=== PATIENT | female | born 1950 | race Caucasian/White ===

== ENCOUNTER → 2016-08-14 | Outpatient (CLI) | payer BC ==
--- NOTE | 2016-08-14 11:11 | REPMRS ---
Patient History The patient states she had a clinical breast exam in 07/2016. Patient is postmenopausal, has history of melanoma skin cancer at age 52, and has history of endometrial cancer at age 51. Family history of prostate cancer in father at age 50 or over. Benign excisional biopsy of the right breast, 2002. Digital Woman Screen Mammo: August 14, 2016 - Exam #: [id number] Bilateral CC and MLO view(s) were taken. Technologist: Evelina Mcelroy, Technologist Prior study comparison: August 15, 2015, digital woman screen mammo performed at [facility] [employer] [facility] [facility]. August 11, 2014, digital woman screen mammo performed at [facility] [employer] [facility]. August 05, 2013, digital woman screen mammo performed at [facility] [employer] [facility] [facility]. FINDINGS: There are scattered fibroglandular densities. There is a moderate amount of residual fibroglandular tissue which is fairly symmetric. There is no interval development of dominant mass, architectural distortion, or clustered microcalcification typical of malignancy. There has been no change in the appearance of the mammogram from the prior studies. ASSESSMENT: BI-RADS/ACR category 1 mammogram. Negative. Recommendation Routine screening mammogram of both breasts in 1 year (for women over age 40). This mammogram was interpreted with the aid of an FDA-approved computer-aided dectection system. Electronically Signed By: Fabian Braden MD 08/14/16 1111
== END ==
LOC: M WHC 09:29
PROVIDERS: ATTEND Nurse Practitioner Women's Health
DX: Z12.31 Encounter for screening mammogram for malignant neoplasm of breast (principal); Z78.0 Asymptomatic menopausal state; Z80.42 Family history of malignant neoplasm of prostate; Z85.820 Personal history of malignant melanoma of skin; Z85.44 Personal history of malignant neoplasm of other female genital organs

== ENCOUNTER → 2017-05-07 | Outpatient (REF) | payer OTHER ==
[2017-05-07 12:16] LABS: ALBUMIN 3.7 GM/DL (3.2-5.2); ALBUMIN/GLOBULIN RATIO 1.23 (1.00-1.93); ALKALINE PHOSPHATASE 72 U/L (45-117); ALT/SGPT 18 U/L (12-78); ANION GAP 7 MEQ/L (8-16); AST/SGOT 18 U/L (7-37); BILIRUBIN,TOTAL 0.8 MG/DL (0.2-1.0); BLOOD UREA NITROGEN 18 MG/DL (7-18); CALCIUM LEVEL 9.1 MG/DL (8.8-10.2); CARBON DIOXIDE LEVEL 29 MEQ/L (21-32); CHLORIDE LEVEL 106 MEQ/L (98-107); CHOLESTEROL LEVEL 271 MG/DL (<200); CHOLESTEROL RISK RATIO 2.945 (<5); CREATININE FOR GFR 0.85 MG/DL (0.55-1.30); FREE T4 0.77 NG/DL (0.76-1.46); GLOMERULAR FILTRATION RATE > 60.0 (>45); GLUCOSE, FASTING 88 MG/DL (70-100); HDL CHOLESTEROL 92 MG/DL (>40); LDL CHOLESTEROL 161.8 MG/DL (<100); NON-HDL-C 179 MG/DL; SODIUM LEVEL 142 MEQ/L (136-145); TOTAL PROTEIN 6.7 GM/DL (6.4-8.2); TRIGLYCERIDES LEVEL 86 MG/DL (<150)
[2017-05-07 12:56] LABS: TOTAL 25(OH) VITAMIN D 31.3 NG/ML (30.0-100.0)
== END ==
LOC: M LABDRAW1 11:25
DX: E78.00 Pure hypercholesterolemia, unspecified (principal); E55.9 Vitamin D deficiency, unspecified
CPT/HCPCS: 84443

== ENCOUNTER → 2017-06-11 | Outpatient (REF) | payer OTHER ==
[2017-06-11 12:58] LABS: FREE T4 0.85 NG/DL (0.76-1.46)
== END ==
LOC: M LABDRAW1 11:47
DX: R94.6 Abnormal results of thyroid function studies (principal)

== ENCOUNTER → 2017-08-13 | Outpatient (REF) | payer MEDICARE, OTHER ==
[2017-08-13 13:37] LABS: FREE T4 1.03 NG/DL (0.76-1.46)
[2017-08-14 08:31] LABS: THYROID PEROXIDASE ANTIBODY 38.7 U/ML (<60.0)
== END ==
LOC: M LABDRAW1 10:29
DX: E03.9 Hypothyroidism, unspecified (principal)
CPT/HCPCS: 84443

== ENCOUNTER → 2017-08-15 | Outpatient (CLI) | payer MEDICARE | LOC: M WHC 09:40 | DX: Z12.31 Encounter for screening mammogram for malignant neoplasm of breast (principal); Z78.0 Asymptomatic menopausal state; Z85.42 Personal history of malignant neoplasm of other parts of uterus; Z92.89 Personal history of other medical treatment; Z08 Encounter for follow-up examination after completed treatment for malignant neoplasm | CPT/HCPCS: 77067; G0123 ==

== ENCOUNTER → 2017-08-15 | Outpatient (REF) | payer MEDICARE | LOC: M SFHCWAGY 09:55 | DX: Z08 Encounter for follow-up examination after completed treatment for malignant neoplasm (principal) ==

== ENCOUNTER → 2018-02-11 | Outpatient (REF) | payer MEDICARE ==
[2018-02-11 12:31] LABS: ANION GAP 5 MEQ/L (8-16); BLOOD UREA NITROGEN 19 MG/DL (7-18); CALCIUM LEVEL 9.2 MG/DL (8.8-10.2); CARBON DIOXIDE LEVEL 26 MEQ/L (21-32); CHLORIDE LEVEL 108 MEQ/L (98-107); CREATININE FOR GFR 0.94 MG/DL (0.55-1.30); FREE T4 1.12 NG/DL (0.76-1.46); GLOMERULAR FILTRATION RATE > 60.0 (>45); GLUCOSE, FASTING 95 MG/DL (70-100); POTASSIUM SERUM 4.3 MEQ/L (3.5-5.1); SODIUM LEVEL 139 MEQ/L (136-145)
== END ==
LOC: M LABDRAW1 11:43
DX: E03.9 Hypothyroidism, unspecified (principal); I10 Essential (primary) hypertension
CPT/HCPCS: 84443

== ENCOUNTER → 2018-05-23 | Outpatient (REF) | payer MEDICARE ==
[2018-05-23 13:05] LABS: BASO # 0.1 10^3/uL (0.0-0.2); BASO % 0.8 % (0.0-1.0); EOS % 0.3 % (0.0-3.0); HEMOGLOBIN 14.2 g/dl (12.0-15.5); LYMPH # 1.3 10^3/uL (1.5-4.5); LYMPH % 19.4 % (24.0-44.0); MEAN CORPUSCULAR HEMOGLOBIN 31.2 pg (27.0-33.0); MEAN CORPUSCULAR HGB CONC 33.8 g/dl (32.0-36.5); MEAN CORPUSCULAR VOLUME 92.3 fl (80.0-96.0); MONO # 0.5 10^3/uL (0.0-0.8); MONO % 6.8 % (0.0-5.0); NEUTROPHILS # 4.8 10^3/uL (1.8-7.7); NEUTROPHILS % 72.5 % (36.0-66.0); PLATELET COUNT, AUTOMATED 257 10^3/uL (150-450); RED BLOOD COUNT 4.55 10^6/uL (4.00-5.40); WHITE BLOOD COUNT 6.6 10^3/uL (4.0-10.0)
[2018-05-23 13:45] LABS: ALT/SGPT 20 U/L (12-78); BILIRUBIN,TOTAL 1.1 MG/DL (0.2-1.0); BLOOD UREA NITROGEN 14 MG/DL (7-18); CALCIUM LEVEL 9.1 MG/DL (8.8-10.2); CARBON DIOXIDE LEVEL 25 MEQ/L (21-32); CHLORIDE LEVEL 109 MEQ/L (98-107); CHOLESTEROL LEVEL 193 MG/DL (<200); CHOLESTEROL RISK RATIO 3.216 (<5); CREATININE FOR GFR 0.86 MG/DL (0.55-1.30); GLOMERULAR FILTRATION RATE > 60.0 (>45); GLUCOSE, FASTING 88 MG/DL (70-100); HDL CHOLESTEROL 60 MG/DL (>40); LDL CHOLESTEROL 118 MG/DL (<100); MAGNESIUM LEVEL 2.2 MG/DL (1.8-2.4); NON-HDL-C 133 MG/DL; POTASSIUM SERUM 4.8 MEQ/L (3.5-5.1); SODIUM LEVEL 141 MEQ/L (136-145); TOTAL PROTEIN 6.8 GM/DL (6.4-8.2); TRIGLYCERIDES LEVEL 76 MG/DL (<150); TROPONIN I < 0.02 NG/ML (< 0.10)
== END ==
LOC: M LABDRAW1 11:29
PROVIDERS: ATTEND Physician Assistant
DX: R55 Syncope and collapse (principal)

== ENCOUNTER → 2018-08-20 | Outpatient (REF) | payer MEDICARE | LOC: M SFHCWAGY 13:19 | PROVIDERS: ATTEND Nurse Practitioner Women's Health | DX: Z12.4 Encounter for screening for malignant neoplasm of cervix (principal); R87.615 Unsatisfactory cytologic smear of cervix ==

== ENCOUNTER → 2018-08-20 | Outpatient (CLI) | payer MEDICARE ==
--- NOTE | 2018-08-20 11:52 | REPMRS ---
Patient History The patient states she had a clinical breast exam in 07/2018. Family history of prostate cancer at age 50 or over in father. Benign excisional biopsy of the right breast, 2002. 3D TOMOSYNTHESIS WAS PERFORMED. Digital Woman Screen Mammo: August 20, 2018 - Exam #: [id number] Bilateral CC and MLO view(s) were taken. Technologist: Yael Gamino, Technologist Prior study comparison: August 15, 2017, digital woman screen mammo performed at [facility]. August 14, 2016, digital woman screen mammo performed at [facility]. FINDINGS: The breast tissue is heterogeneously dense. This may lower the sensitivity of mammography. There has been no change in the appearance of the mammogram from the prior studies. There is a moderate amount of residual fibroglandular tissue which is fairly symmetric. There is no interval development of dominant mass, areas of architectural distortion, or clustered microcalcification typical of malignancy. Assessment: BI-RADS/ACR category 1 mammogram. Negative Mammogram. Recommendation Routine screening mammogram in 1 year (for women over age 40). This mammogram was interpreted with the aid of an FDA-approved computer-aided dectection system. Electronically Signed By: Naveen Broussard MD 08/20/18 [id number]
== END ==
LOC: M WHC 09:49
PROVIDERS: ATTEND Family Medicine
DX: Z01.419 Encounter for gynecological examination (general) (routine) without abnormal findings (principal); Z12.31 Encounter for screening mammogram for malignant neoplasm of breast; Z86.018 Personal history of other benign neoplasm
CPT/HCPCS: 77063; 77067; G0101; G0123

== ENCOUNTER → 2018-08-21 | Outpatient (REF) | payer MEDICARE ==
[2018-08-21 13:24] LABS: BASO % 0.4 % (0.0-1.0); EOS # 0.1 10^3/uL (0.0-0.50); EOS % 0.7 % (0.0-3.0); HEMATOCRIT 44.4 % (36.0-47.0); HEMOGLOBIN 14.8 g/dl (12.0-15.5); LYMPH # 1.2 10^3/uL (1.5-4.5); LYMPH % 16.6 % (24.0-44.0); MEAN CORPUSCULAR HEMOGLOBIN 30.9 pg (27.0-33.0); MEAN CORPUSCULAR HGB CONC 33.3 g/dl (32.0-36.5); MEAN CORPUSCULAR VOLUME 92.7 fl (80.0-96.0); MONO # 0.5 10^3/uL (0.0-0.8); MONO % 6.3 % (0.0-5.0); NEUTROPHILS # 5.4 10^3/uL (1.8-7.7); NEUTROPHILS % 75.7 % (36.0-66.0); PLATELET COUNT, AUTOMATED 276 10^3/uL (150-450); RED BLOOD COUNT 4.79 10^6/uL (4.00-5.40); WHITE BLOOD COUNT 7.1 10^3/uL (4.0-10.0)
[2018-08-21 14:05] LABS: FREE T4 1.11 NG/DL (0.76-1.46); THYROID STIMULATING HORMONE 1.86 uIU/ML (0.358-3.740)
== END ==
LOC: M LABDRAW1 10:04
PROVIDERS: ATTEND Physician Assistant
DX: E03.9 Hypothyroidism, unspecified (principal)

== ENCOUNTER → 2019-06-04 | Outpatient (REF) | payer MEDICARE ==
[2019-06-04 10:03] LABS: BASO % 0.5 % (0.0-1.0); EOS # 0.1 10^3/uL (0.0-0.5); EOS % 1.4 % (0.0-3.0); HEMATOCRIT 40.3 % (36.0-47.0); HEMOGLOBIN 13.3 g/dl (12.0-15.5); LYMPH # 1.3 10^3/uL (1.5-5.0); LYMPH % 22.1 % (24.0-44.0); MEAN CORPUSCULAR HEMOGLOBIN 31.1 pg (27.0-33.0); MEAN CORPUSCULAR VOLUME 94.4 fl (80.0-96.0); MONO # 0.3 10^3/uL (0.0-0.8); MONO % 5.9 % (0.0-5.0); NEUTROPHILS # 4.1 10^3/uL (1.5-8.5); NEUTROPHILS % 69.9 % (36.0-66.0); PLATELET COUNT, AUTOMATED 227 10^3/uL (150-450); RED BLOOD COUNT 4.27 10^6/uL (4.00-5.40); WHITE BLOOD COUNT 5.8 10^3/uL (4.0-10.0)
[2019-06-04 10:31] LABS: ALBUMIN 3.6 GM/DL (3.2-5.2); ALT/SGPT 19 U/L (12-78); BLOOD UREA NITROGEN 16 MG/DL (7-18); CALCIUM LEVEL 8.9 MG/DL (8.8-10.2); CARBON DIOXIDE LEVEL 28 MEQ/L (21-32); CHLORIDE LEVEL 109 MEQ/L (98-107); CHOLESTEROL LEVEL 189 MG/DL (<200); CREATININE FOR GFR 0.82 MG/DL (0.55-1.30); FREE T4 1.09 NG/DL (0.76-1.46); GLOMERULAR FILTRATION RATE > 60.0 (>45); GLUCOSE, FASTING 104 MG/DL (70-100); HDL CHOLESTEROL 70 MG/DL (>40); LDL CHOLESTEROL 105 MG/DL (<100); NON-HDL-C 119 MG/DL; POTASSIUM SERUM 4.1 MEQ/L (3.5-5.1); SODIUM LEVEL 142 MEQ/L (136-145); TOTAL PROTEIN 6.3 GM/DL (6.4-8.2); TRIGLYCERIDES LEVEL 70 MG/DL (<150)
== END ==
LOC: M LABDRAW1 08:36
PROVIDERS: ATTEND Family Medicine
DX: I10 Essential (primary) hypertension (principal); E03.9 Hypothyroidism, unspecified; E78.00 Pure hypercholesterolemia, unspecified

== ENCOUNTER → 2019-08-24 | Outpatient (CLI) | payer MEDICARE ==
--- NOTE | 2019-08-24 14:13 | REP ---
BILATERAL MAMMOGRAM WITH 3D TOMOSYNTHESIS: Bilateral mammogram performed in the MLO and CC projections with 3D tomosynthesis. COMPARISON: 08/20/2018 as well as other prior exams. There is no family history of breast cancer. Tyrer-Cuzick lifetime risk of breast cancer is 4.4%. Volpara breast density is B. There is mild scattered fibroglandular tissue which is unchanged. There may be increasing tiny calcifications in the upper inner right breast. Otherwise, there are coarse benign type calcifications seen bilaterally. IMPRESSION: BIRADS 0: BI-RADS/ACR category 0 mammogram, Incomplete: Need additional imaging evaluation and/or prior mammograms for comparison. ACR 0 incomplete. Possible increasing tiny calcifications upper inner right breast. Recommend magnifications views to further evaluate. This mammogram was interpreted with the aid of an FDA-approved computer-aided detection system. A. Negative x-ray reports should not delay biopsy if a dominant or clinically suspicious mass is present. B. Four to eight percent of cancers are not identified by x-ray. C. Adenosis and dense breasts may obscure an underlying neoplasm. The patient states she/he had a clinical breast exam in February 2019. The patient letter being requested is M0
== END ==
LOC: M WHC 09:57
PROVIDERS: ATTEND Nurse Practitioner Women's Health
DX: Z12.31 Encounter for screening mammogram for malignant neoplasm of breast (principal)

== ENCOUNTER → 2019-08-28 | Outpatient (CLI) | payer MEDICARE ==
--- NOTE | 2019-08-28 16:02 | REP ---
DIAGNOSTIC MAMMOGRAM, RIGHT BREAST: Magnification views of the right breast are performed. There are two clusters of suspicious microcalcifications identified in the right breast. A more anterior cluster is seen in the 12 to 1-o'clock region of the right breast. Another is seen more posteromedially in the mid third of the right breast. Recommend stereotactic biopsy. IMPRESSION: BIRADS 4: BI-RADS/ACR category 4 mammogram. Suspicious Abnormality - biopsy should be considered. Two clusters of pleomorphic microcalcifications identified in the right breast, one anteriorly between 12 and 1-o'clock position and the other more posteromedially in the mid third of the right breast. Recommend stereotactic biopsy of both clusters of microcalcifications. ACR 4 suspicious.
== END ==
LOC: M WHC 12:50
PROVIDERS: ATTEND Nurse Practitioner Family
DX: R92.2 Inconclusive mammogram (principal)

== ENCOUNTER → 2019-09-16 | Outpatient (CLI) | payer MEDICARE ==
[2019-09-16 15:01] VITALS: BP 140/70
--- NOTE | 2019-09-17 00:48 | REP ---
ULTRASOUND LEFT BREAST: Ultrasound left breast requested by Dr. Lema of the 11-12 o'clock region. There is an oval calcification at that location, which appears to represent an area of calcified fat necrosis on the mammogram of 08/24/2019. The calcification measures 6 x 5 x 3 mm. No other cystic or solid nodule is seen. IMPRESSION: ACR 2, benign. Benign oval calcification 11 o'clock left breast. No other cystic or solid nodule seen in the left breast at 11-12 o'clock.
--- NOTE | 2019-09-17 16:22 | REP ---
SPECIMEN RADIOGRAPHY RIGHT BREAST: Four views. HISTORY: Right breast calcifications. Comparison mammography August 28, 2019. FINDINGS: Specimen radiography demonstrates microcalcifications from the target groupings in four of the removed specimens. IMPRESSION: Specimen radiography demonstrates microcalcifications.
--- NOTE | 2019-09-17 16:22 | REP ---
POSTBIOPSY MAMMOGRAM RIGHT BREAST: Postbiopsy mammogram of the right breast performed following stereotactic biopsy of two separate clusters of microcalcifications. A biopsy clip is see at 12 -o'clock position at the site of the previously identified cluster of microcalcifications, which are no longer visualized. A second biopsy clip is seen in the inner right breast at the site of a cluster of microcalcifications. Many of these calcifications which are no longer visualized. Clip placement appears appropriate.
--- NOTE | 2019-09-18 11:03 | REP ---
STEREOTACTIC GUIDANCE FOR RIGHT BREAST BIOPSY: Two clusters of microcalcifications. Stereotactic guidance was provided for Dr. Lema who performed stereotactic-guided biopsy of two clusters of microcalcifications, one located at about 12-o'clock position right breast and the other at about 3-o'clock position. The 12-o'clock position anterior cluster is biopsied first. The cluster is seen in the biopsy window. The second cluster is then targeted in the medial aspect of the right breast. The cluster is seen in the biopsy window. Biopsy clip is seen at the each site following the biopsies.
--- NOTE | 2019-09-24 16:24 | ROOPDOC ---
[facility] Report Of Operation Report of Operation DATE OF PROCEDURE: 09/16/19 PREPROCEDURE DIAGNOSES: 2 clusters of suspicious right breast calcifications POSTPROCEDURE DIAGNOSES: 2 clusters of suspicious right breast calcifications PROCEDURE: stereotactic biopsy of 2 clusters of suspicious right breast calcifications ( 2 sites) SURGEON: Gus Rojas CLIENT SERVICES ASSOCIATE: ANESTHESIA: local ESTIMATED BLOOD LOSS: Approximately 5 mL. COMPLICATIONS: none REMARKS: calcs seen in both specimens, clips seen in expected locations in the right breast DESCRIPTION OF PROCEDURE: Lidocaine 1% LOT [id number] Expiration 09/14 Sodium Bicarbonate 8.4% LOT [id number] Expiration 09/12 CENTRAL BX: Hydromark clip LOT [id number] Expiration 01/12 REF T1 titanium shaped 1 (closed Spring) Bx device: Stereotactic Mammotome Revolve Dual Vacuum- assisted Biopsy System 10 G LOT [id number] Expiration 05/2022 REF [id number] MEDIAL BX Hydromark clip LOT [id number] Expiration 06/12 REF T1 titanium shaped 1 (closed Spring) Bx device: Stereotactic Mammotome Revolve Dual Vacuum- assisted Biopsy System 10 G LOT [id number] Expiration 05/2022 REF [id number] Informed consent was obtained in the preop area. The most common risk and possible complications including bleeding, hematoma, bruising, infection, injury to surrounding structures were explained to the patient and she expressed understanding. Patient was taken to the procedure room and placed prone on the [facility] Prone Breast Biopsy table with the right breast hanging through the table aperture. Right breast was placed into Cranio-Caudal compression and Brick Siding Applicator saw images were taken. Centrally located suspicious cluster of calcifications was identified on the saw images and target was set. CC approach from the top was chosen for this procedure. At this time, since we were able to confirm visibility of the suspicious calcifications and patient tolerated prone positioning allowing to proceed with the biopsy, appropriate time out was done stating patients name, date of , and the procedure to be performed. The right breast in CC compression was prepped in the usual fashion. Plain Lidocaine 1% and 8.4% sodium bicarbonate 10:1 mix was used to anesthetize the skin, the biopsy site and tissues along the anticipated biopsy tract. Small skin incision was made with blade number 11. Mammotome 10 G stereotactic breast biopsy device was inserted through the incision and advanced to the previously set coordinates marking the target lesion. Pre-fire imaging was taken to assure appropriate positioning. At this time, Mammotome 10 G breast biopsy device was fired and vacuum assisted biopsies were collected. The biopsy samples were investigated with Faxitron Imaging system and calcifications were observed. Biopsy samples were then placed in the formaldehyde, marked with patients name and right central breast biopsy site, and sent to pathology for evaluation. Hydromark clip was placed into the Mammotome biopsy device channel and deployed. Post-deployment imaging was done to assure appropriate clip deployment. Clip was noted in the right medial biopsy site. At this point, paddle CC compression of the right breast was released and repositioned to target the medical cluster of calcifications. Another Brick Siding Applicator saw images were taken. Medially located suspicious cluster of calcifications was identified on the saw images and target was set. CC approach from the top was chosen for this procedure. The right breast in CC compression was re-prepped in the usual fashion. Plain Lidocaine 1% and 8.4% sodium bicarbonate 10:1 mix was used to anesthetize the skin, the biopsy site and tissues along the anticipated biopsy tract. Small skin incision was made with blade number 11. Mammotome 10 G stereotactic breast biopsy device was inserted through the incision and advanced to the previously set coordinates marking the target lesion. Pre-fire imaging was taken to assure appropriate positioning. At this time, Mammotome 10 G breast biopsy device was fired and vacuum assisted biopsies were collected. The biopsy samples were investigated with Faxitron Imaging system and calcifications were observed. Biopsy samples were then placed in the formaldehyde, marked with patients name and right medial breast biopsy site, and sent to pathology for evaluation. Hydromark clip was placed into the Mammotome biopsy device channel and deployed. Post-deployment imaging was done to assure appropriate clip deployment. Clip was noted in the right medial biopsy site. At this point, paddle CC compression of the right breast was released and manual pressure was held to decrease harmonic effect and to assure hemostasis. No bleeding was noted upon removal of the pressure. Patient was slowly repositioned and placed into sitting position, and then assisted off the table. Post-biopsy mammogram of the right breast was obtained and showed two clips in expected position. Postprocedural dressing was placed. Patient tolerated procedure well and was taken to the recovery unit in stable condition. Discharge instructions were discussed with the patient and she expressed understanding. GUS ROJAS DO Sep 24, 2019 16:23
== END ==
LOC: M WHCPRO 10:49
PROVIDERS: ATTEND Surgery
DX: R92.1 Mammographic calcification found on diagnostic imaging of breast (principal); N60.19 Diffuse cystic mastopathy of unspecified breast

== ENCOUNTER → 2019-09-30 | Outpatient (REF) | payer MEDICARE | LOC: M SFHCWAGY 15:22 | PROVIDERS: ATTEND Surgery | DX: L53.9 Erythematous condition, unspecified (principal) ==

== ENCOUNTER → 2019-10-02 | Outpatient (CLI) | payer MEDICARE ==
[2019-10-02 15:51] LABS: FREE T4 1.11 NG/DL (0.76-1.46); THYROID STIMULATING HORMONE 3.04 uIU/ML (0.358-3.740)
== END ==
LOC: M PLALAB 14:16
PROVIDERS: ATTEND Family Medicine
DX: E03.9 Hypothyroidism, unspecified (principal)

== ENCOUNTER → 2019-12-28 | Outpatient (CLI) | payer MEDICARE ==
[2019-12-28 14:26] LABS: FREE T4 1.05 NG/DL (0.76-1.46); THYROID STIMULATING HORMONE 1.9 uIU/ML (0.358-3.740)
== END ==
LOC: M PLALAB 10:14
PROVIDERS: ATTEND Family Medicine
DX: E03.9 Hypothyroidism, unspecified (principal)

== ENCOUNTER → 2020-02-02 | Outpatient (REF) | payer MEDICARE | LOC: M SFHCWAGY 12:55 | PROVIDERS: ATTEND Nurse Practitioner Women's Health | DX: Z12.4 Encounter for screening for malignant neoplasm of cervix (principal); Z85.41 Personal history of malignant neoplasm of cervix uteri; Z98.890 Other specified postprocedural states; N95.2 Postmenopausal atrophic vaginitis | CPT/HCPCS: G0101; G0123 ==

== ENCOUNTER → 2020-02-24 | Outpatient (CLI) | payer MEDICARE ==
[2020-02-24 13:28] LABS: BASO % 0.6 % (0.0-1.0); EOS # 0.1 10^3/uL (0.0-0.5); EOS % 1.3 % (0.0-3.0); HEMATOCRIT 41.2 % (36.0-47.0); HEMOGLOBIN 13.1 g/dl (12.0-15.5); LYMPH # 1.2 10^3/uL (1.5-5.0); LYMPH % 18.2 % (24.0-44.0); MEAN CORPUSCULAR HEMOGLOBIN 31.2 pg (27.0-33.0); MEAN CORPUSCULAR HGB CONC 31.8 g/dl (32.0-36.5); MEAN CORPUSCULAR VOLUME 98.1 fl (80.0-96.0); MONO # 0.5 10^3/uL (0.0-0.8); MONO % 8.1 % (0.0-5.0); NEUTROPHILS # 4.8 10^3/uL (1.5-8.5); NEUTROPHILS % 71.7 % (36.0-66.0); PLATELET COUNT, AUTOMATED 274 10^3/uL (150-450); WHITE BLOOD COUNT 6.7 10^3/uL (4.0-10.0)
[2020-02-24 13:59] LABS: C REACTIVE PROTEIN QUANTITATIV < 0.30 MG/DL (0.00-0.30); FREE T4 1.11 NG/DL (0.76-1.46)
[2020-02-24 14:03] LABS: ERYTHROCYTE SEDIMENTATION RATE 9 mm/hr (0-30)
[2020-02-25 16:12] LABS: Lyme Disease IgG/IgM Antibodie <0.91 ISR (0.00-0.90); Lyme Disease IgM Ab Quantitati <0.80 index (0.00-0.79)
== END ==
LOC: M PLALAB 09:40
PROVIDERS: ATTEND Family Medicine
DX: E03.9 Hypothyroidism, unspecified (principal); M25.562 Pain in left knee

== ENCOUNTER → 2020-03-14 | Outpatient (CLI) | payer MEDICARE ==
--- NOTE | 2020-03-14 09:45 | REP ---
INDICATION: R92.1 RIGHT BREAST CALC/6 MO F/U. COMPARISON: 08/24/2019, 09/16/2019, as well as other prior exams. TECHNIQUE: MLO and CC views right breast performed with tomosynthesis. FINDINGS: Mild scattered fibroglandular tissue is unchanged. 2 biopsy clips are noted status post negative stereotactic biopsies 09/16/2019. No new clusters of suspicious microcalcifications are seen. Scattered benign calcifications are present. There is no new mass or architectural distortion. Volpara breast density B Tyrer-Cuzick lifetime risk of breast cancer 4.2%. IMPRESSION: BIRADS/ACR 2 benign. No new mass or suspicious clusters of microcalcifications, status post negative stereotactic biopsies 09/16/2019. This mammogram was interpreted with the aid of an FDA-approved computer-aided detection system. The patient letter being requested is M 1. RECOMMENDATION: Repeat screening mammography recommended August 2020. <Electronically signed by Naveen Broussard > 03/14/20 0915
== END ==
LOC: M WHC 08:49
PROVIDERS: ATTEND Surgery
DX: R92.1 Mammographic calcification found on diagnostic imaging of breast (principal)
CPT/HCPCS: 77065; G0279

== ENCOUNTER → 2020-06-13 | Outpatient (CLI) | payer MEDICARE ==
[2020-06-13 12:02] LABS: BASO % 0.8 % (0.0-1.0); EOS # 0.1 10^3/uL (0.0-0.5); EOS % 1.5 % (0.0-3.0); HEMATOCRIT 41.5 % (36.0-47.0); HEMOGLOBIN 13.6 g/dl (12.0-15.5); LYMPH # 1.3 10^3/uL (1.5-5.0); MEAN CORPUSCULAR HEMOGLOBIN 30.8 pg (27.0-33.0); MEAN CORPUSCULAR HGB CONC 32.8 g/dl (32.0-36.5); MEAN CORPUSCULAR VOLUME 94.1 fl (80.0-96.0); MONO # 0.5 10^3/uL (0.0-0.8); MONO % 8.6 % (2.0-8.0); NEUTROPHILS # 3.4 10^3/uL (1.5-8.5); NEUTROPHILS % 65.1 % (36.0-66.0); PLATELET COUNT, AUTOMATED 296 10^3/uL (150-450); RED BLOOD COUNT 4.41 10^6/uL (4.00-5.40); WHITE BLOOD COUNT 5.3 10^3/uL (4.0-10.0)
[2020-06-13 13:28] LABS: ALBUMIN 3.5 GM/DL (3.2-5.2); ALT/SGPT 21 U/L (12-78); BILIRUBIN,TOTAL 0.9 MG/DL (0.2-1.0); BLOOD UREA NITROGEN 14 MG/DL (7-18); CALCIUM LEVEL 9.2 MG/DL (8.8-10.2); CARBON DIOXIDE LEVEL 26 MEQ/L (21-32); CHLORIDE LEVEL 108 MEQ/L (98-107); CHOLESTEROL LEVEL 201 MG/DL (<200); CREATININE FOR GFR 0.91 MG/DL (0.55-1.30); FREE T4 1.24 NG/DL (0.76-1.46); GLOMERULAR FILTRATION RATE > 60.0 (>45); GLUCOSE, FASTING 89 MG/DL (70-100); HDL CHOLESTEROL 50 MG/DL (>40); LDL CHOLESTEROL 135 MG/DL (<100); NON-HDL-C 151 MG/DL; POTASSIUM SERUM 4.2 MEQ/L (3.5-5.1); SODIUM LEVEL 140 MEQ/L (136-145); TOTAL 25(OH) VITAMIN D 34.4 NG/ML (30.0-100.0); TOTAL PROTEIN 6.3 GM/DL (6.4-8.2); TRIGLYCERIDES LEVEL 80 MG/DL (<150)
[2020-06-14 21:07] LABS: ANA (HEP2) Negative (.); Lyme Disease IgG/IgM Antibodie <0.91 ISR (0.00-0.90); Lyme Disease IgM Ab Quantitati <0.80 index (0.00-0.79)
== END ==
LOC: M PLALAB 08:18
PROVIDERS: ATTEND Family Medicine
DX: Z00.00 Encounter for general adult medical examination without abnormal findings (principal); E78.00 Pure hypercholesterolemia, unspecified; I10 Essential (primary) hypertension; E55.9 Vitamin D deficiency, unspecified; R53.83 Other fatigue; Z79.899 Other long term (current) drug therapy

== ENCOUNTER → 2020-09-09 | Outpatient (CLI) | payer MEDICARE ==
--- NOTE | 2020-09-09 11:17 | REPMRS ---
Patient History The patient states she had a clinical breast exam in August 2020. Family history of prostate cancer at age 50 or over in father. Benign stereotatic loc for ea lesion. of the right breast, September 16, 2019. Benign radio exam breast specimen. of the right breast, September 16, 2019. Benign excisional biopsy of the right breast, 2002. Pfizer vaccine 04/24/20 left arm. 05/15/20 right arm. 21 lb intentional weight loss. Patient states no breast complaints today. Patient has signed MRS History Sheet. Digital Woman Screen Mammo: September 09, 2020 - Exam #: [id number] Bilateral CC and MLO view(s) were taken. Technologist: RT Huber Prior study comparison: March 14, 2020, right breast diagnostic unilateral mammo performed at [facility]. August 28, 2019, bilateral diagnostic unilateral mammo performed at [facility]. FINDINGS: There are scattered fibroglandular densities. Screening. Digital screening (2D) mammography was performed bilaterally in the CC and MLO projections. Additionally, breast tomosynthesis (3D mammography) was performed bilaterally in the CC and MLO projections. Todays exam was compared to the prior exam/exams. By history, the patient has no complaints of a palpable breast abnormality or other significant breast complaints. The breasts are unchanged in size and shape. There are no robin-soft tissue densities or spiculated masses. There is no internal architectural distortion.Once again, stable benign appearing calcifications are seen. There are no suspicious robin-calcific clusters. Skin thickening or nipple retraction is not present. IMPRESSION: BI-RADS Category 2- Benign Findings. There is no evidence of malignant alteration of the breasts. Followup examination recommended in one year. The Volpara volumetric breast density category is B, there are scattered areas of fibroglandular densities. This mammogram was read with the assistance of [employer],an FDA approved computer aided detection system for mammography. The lifetime Tyrer-Cuzick score is 4.2 % Negative x-ray reports should not delay surgical consultation if a dominant or clinically suspicious mass is present. Not all breast cancers can be identified by mammography. Therefore, we recommend that you continue to perform regular breast self-examination and physical examination and then promptly contact your physician of any concerns or changes. Adenosis and dense breasts may obscure an underlying neoplasm. Assessment: BI-RADS/ACR category 2 mammogram. Benign Findings. Recommendation Routine screening mammogram of both breasts in 1 year. Electronically Signed By: Iker Méndez DO 09/09/20 1116
== END ==
LOC: M WHC 09:56
PROVIDERS: ATTEND Surgery
DX: Z12.31 Encounter for screening mammogram for malignant neoplasm of breast (principal)

== ENCOUNTER → 2021-01-06 | Outpatient (CLI) | payer MEDICARE ==
[~2021-01-06] MED LIST: ACYC200C8 PO; CIDA500T2 PO; GNP250TA9 PO; HYDR12.55 PO; IRBE150T7 PO; LEVO50TA5 PO; VITAD400CA PO
== END ==
LOC: M LABSMTC 10:29
PROVIDERS: ATTEND Anesthesiology
DX: Z01.812 Encounter for preprocedural laboratory examination (principal); Z20.822 Contact with and (suspected) exposure to COVID-19

== ENCOUNTER 2021-01-11 08:44 | Day surgery (SDC) | payer MEDICARE ==
[~2021-01-11] VITALS: Ht 170.2 cm; Wt 98.9 kg
[~2021-01-11 08:44] MED LIST changes: +NS 1,000 ML IV ONE
--- OUTSIDE RECORDS SUMMARY | 2021-01-11 08:49 | CCD | Summary of Care ---
Author Author [facility] Organization [facility] Address Unknown Phone Unavailable Care Team Providers Care Neurology Nurse Name Role Phone Diogo-CorinHilario cooperellen FARLEY PCP Reason for Referral * External Surgery Case (Routine) Referred By Contact Referred To Contact Status Reason Specialty Diagnoses / Procedures Med Monae MD [address] [place] [id number] Email: [email or web address] Diagnoses Dupuytren's contracture of right hand P rocedures Surgery Case Request Electronically signed by Med Monae MD at Reason for Visit * Reason Comments New Patient R hand ganglion, bilat smal l finger contracture Encounter Details Care Team Description Date Type Department Med Monae MD [address] [place] [id number] Dupuytren's contracture of right hand (P rimary Dx) 11/18/2020 Office Visit [facility] , [facility] [address] [place] [phone] Allergies No Known Active Allergiesdocumented as of this encounter (statuses as of 11/18/2020) Medications End Date Status Medication Sig Dispensed Refills Start Date Active Vitamin D-3 25 MCG (1000 1 capsule 0 UT) Oral Capsule 1600 mg (CHOLECALCIFEROL) Active hydroCHLOROthiazide 25 MG 1 tablet in 0 Oral Tablet (HYDRODIURIL) the morning Active Irbesartan 150 MG Oral Take 150 mg 0 02 Tablet (AVAPRO) by mouth 1 daily Active Levothyroxine Sodium 50 1 tablet on 0 MCG Oral Tablet an empty (SYNTHROID) stomach in the morning Active Magnesium 500 MG Oral 1 tab 0 Tablet 11/18/2020 Discontinued Esomeprazole Magnesium 20 1 capsule 0 MG Oral Capsule Delayed Release (NexIUM) 11/18/2020 Discontinued (Medication Rec oncilation) Gabapentin 300 MG Oral TAKE ONE 0 02 Capsule (NEURONTIN) CAPSULE BY 0 MOUTH AT BEDTIME NEEDED 11/18/2020 Discontinued (Medication Rec oncilation) Fish Oil 1000 MG Oral 1 tab 0 Capsule 11/18/2020 Discontinued (Medication Rec oncilation) oxyCODONE-Acetaminophen 1 tablet as 0 5-325 MG Oral Tablet needed 6 (PERCOCET) 11/18/2020 Discontinued (Medication Rec oncilation) Valsartan 160 MG Oral 1 tablet 0 Tablet (DIOVAN) 11/18/2020 Discontinued (Medication Rec oncilation) Valsartan 80 MG Oral 1 tab 0 Tablet (Diovan) documented as of this encounter (statuses as of 11/18/2020) Active Problems No known active problemsdocumented as of this encounter (statuses as of 11/18/2020) Immunizations Name Administration Dates Next Due documented as of this encounter Social History Date Tobacco Use Types Packs/Day Years Used Passive Smoke Exposure - Cigarettes 0 15 Never Smoker Smokeless Tobacco: Never Used Comments Alcohol Use Standard Drinks/Week Not Currently 0 (1 standard drink = 0.6 o z pure alcohol) Sex Assigned at Date Recorded Not on file Date Recorded COVID-19 Exposure Response 11/18/2020 10:25 AM EDT In the last month, have you been in contact with No / Unsure someone who was confirmed or suspected to have Coronavirus / COVID-19? documented as of this encounter Last Filed Vital Signs Reading Time Taken Comments Vital Sign 152/93 11/18/2020 10:44 AM EDT Blood Pressure 78 11/18/2020 10:44 AM EDT Pulse - - Temperature - - Respiratory Rate - - Oxygen Saturation - - Inhaled Oxygen Concentration 90.7 kg (200 lb) 11/18/2020 10:44 AM EDT Weight 170.2 cm (5' 7") 11/18/2020 10:44 AM EDT Height 31.32 11/18/2020 10:44 AM EDT Body Mass Index documented in this encounter Progress Notes * Med Monae MD - 11/18/2020 10:[address] Hargrove: Thank you very much for asking me to see Debbie Orellana. I saw and examined the patient with my fellow, Dr. Noe Lima, and I agree with his assessment and plan. I refer to his note for a complete note. We are going to proceed with a right partial palmar and small finger digital fasciectomy to be performed under local anesthesia. Thank you once again for asking me to see this very pleasant lady. Sincerely, Med Monae * Noe Lima MD - 11/18/2020 10:30 AM EDT History 69-year-old [id number] female presents for evaluation of bilateral hand nodularity and contracture of the small finger that is been progressively worse jaki. Symptoms are worse in the right hand than the left. She notes that her p inky finger has begun to contract down on the right side. She has noticed the e grace stages of the contracture on the left but is not nearly as worse as the rig ht. She does report that the contracture in the right hand is started to impact her activities and limits the function of her hand. Exam Inspection of the right hand demonstrates evidence of Dupuytren's disease with a central cord overlying the palm of the fifth metacarpal as well as a less promi nent area over the fourth metacarpal, the nodularity extends through the volar a spect of the MCP joint and the small finger with approximately 15 degrees of fle xion contracture in the MCP and 5 degrees in the PIP joint of the small finger. There is no flexion contracture in the ring finger. The left hand demonstrates a central cord with lesser prominence over the fifth metacarpal with no evidence of contracture. A/P 69-year-old female who has bilateral Dupuytren's with right small finger contrac ture at the MCP and PIP that is bothersome to her and inhibiting her activities of daily living. We had extensive discussion about treatment options including both fasciectomy versus percutaneous needle aponeurotomy. The patient would lik e to proceed with fasciectomy on the right side. We are in agreement with this plan we will get it scheduled for her soon as possible. documented in this encounter Plan of Treatment Order Schedule Name Type Priority Associated Diag noses 1 Occurrences starting 11/18/2020 until 05/21/2021 COVID-19 PCR Microbiology Routine Dupuytren's con tracture of right hand Health Maintenance Due Date Last Done Comments Hepatitis C Screening (B. 1950 [id number]) MMR Vaccines (1 of 1 - 11/20/1951 Standard series) DTaP,Tdap,and Td Vaccines 11/20/1958 (1 - Tdap) Breast Cancer Screening 2 11/20/2001 years Colon Cancer Screening 10 11/20/2001 yrs Osteoporosis Screening 2 11/20/2016 yr Pneumococcal Vaccine: 65+ 11/20/2016 Years (1 of 1 - PPSV23) Varicella Vaccines (1 of 02/10/2019 12/16/2018 2 - 2-dose childhood series) Zoster Vaccines (2 of 2) 02/10/2019 12/16/2018 Influenza Vaccine 12/23/2020 11/23/2019, 01/14/2019, 02/17/2018, Additional history exists COVID-19 Vaccine Completed 05/15/2020, 04/24/2020 HIB Vaccines Aged Out No longer eligible based on patient's age to complete this topic Hepatitis A Vaccines Aged Out No longer eligibl e based on patient's age to complete this topic Hepatitis B Vaccines Aged Out No longer eligibl e based on patient's age to complete this topic IPV Vaccines Aged Out No longer eligible based on patient's age to complete this topic Pneumococcal Vaccine: Aged Out No longer eligib le based on patient's age to Pediatrics (0 to 5 Years) complete this topic and At-Risk Patients (6 to 64 Years) documented as of this encounter Procedures Comments Procedure Name Priority Date/Time Associated Diag nosis SURGERY CASE REQUEST Routine 11/18/2020 Dupuytren 's contracture OUTSIDE FACILITY ONLY 11:28 AM EDT of right hand documented in this encounter Results Not on filedocumented in this encounter Visit Diagnoses Diagnosis Dupuytren's contracture of right hand - Primary Contracture of palmar fascia documented in this encounter
--- OUTSIDE RECORDS SUMMARY | 2021-01-11 08:49 | CCD | Continuity of Care Document ---
Author Author Debbie ARMENDARIZ M.D. Organization Unknown Address [address] [place] [id number] Phone [phone] Care Team Providers Care Clinical Fellow Name Role Phone Shante Hargrove DO AUTM [phone] Problems Active Problems Provider Date Screening for malignant neoplasm of colon Brissa Sidhu, A.N.P. Onset: 07/29/2012 Epigastric pain Brissa Sidhu,A.N.P. Onset: 07/30/19 13 Essential hypertension Onset: 07/30/2012 Social History Type Date Description Comments Sex Unknown ETOH Use Occasionally Tobacco Use Start: Unknown End: Unknown Patient is a former smoker Allergies, Adverse Reactions, Alerts Description No Known Drug Allergies Medications Active Medications SIG Qnty Indications Ordering Provide r Date [place] [id number] Tablets as directed 1box Norman Armendariz M.D. 11/15/2020 Levothyroxine Sodium 50mcg Tablets Take One Tablet By Mouth Every Morning On Empty Stomach Unknown Irbesartan 150mg Tablets Take One Tablet By Mouth Every Day Unknown Hydrochlorothiazide 12.5mg Tablets Take One Tablet By Mouth Every Day Unknown Immunizations Description No Information Available Vital Signs Date Vital Result Comment 11/15/2020 2:14pm Height 67 inches 5'7" Weight 220.00 lb BP Systolic 130 mmHg BP Diastolic 80 mmHg Heart Rate 67 /min BMI (Body Mass Index) 34.5 kg/m2 Weight 99.792 kg Body Temperature 96.4 F 09/15/2015 10:38am Height 67 inches 5'7" Weight 180.00 lb BP Systolic 114 mmHg BP Diastolic 74 mmHg Heart Rate 64 /min BMI (Body Mass Index) 28.2 kg/m2 Weight 81.648 kg Results Description No Information Available Procedures Date Code Description Status 11/15/2020 02121 Office/Outpatient New Low MDM 30 -44 Minutes Completed Medical Devices Description No Information Available Encounters Type Date Location Provider Dx Diagnosis Office Visit 11/15/2020 1:45p Main Office Norman Armendariz M.D. Z 86.010 Personal history of colonic polyps Assessments Date Code Description Provider 11/15/2020 Z86.010 Personal history of colonic poly ps Norman Armendariz M.D. Plan of Treatment Future Appointment(s):* 01/11/2021 11:30 am - Norman Armendariz M.D. at Main Office 11/15/2020 - Norman Armendariz M.D.* Z86.010 Personal history of colonic polyps* Comments:* 69 yo wf who presents for a colonoscopy due to a h/o colonic polyps. Last scope was in 2015. No c/o abdominal pain, weight loss, change in bowel habits, or rectal bleeding. No family h/o colon cancer. No h/o chest pain, or sob. Plan:1.Schedule patient for Colonoscopy. 2. Informed consent given.3. Advised to stop asa, plavix,and anticoagulation 3 to 7 days prior to the procedures. Functional Status Description No Information Available Mental Status Description No Information Available Referrals Description No Information Available
--- OUTSIDE RECORDS SUMMARY | 2021-01-11 08:50 | CCD ---
Author Author [facility] Organization [facility] Address Unknown Phone Unavailable Care Team Providers Care Commercial Account Manager Name Role Phone Maura Armendariz MD Unavailable Unavailable Maura Armendariz MD Unavailable Unavailable Maura Armendariz MD Unavailable Unavailable Maura Armendariz MD Unavailable Unavailable Maura Armendariz MD Unavailable Unavailable Maura Armendariz MD Unavailable Unavailable Maura Armendariz MD Unavailable Unavailable Maura Armendariz MD Unavailable Unavailable Maura Armendariz MD Unavailable Unavailable Maura Armendariz MD Unavailable Unavailable Maura Armendariz MD Unavailable Unavailable Maura Armendariz MD Unavailable Unavailable Maura Armendariz MD Unavailable Unavailable Maura Armendariz MD Unavailable Unavailable Maura Armendariz MD Unavailable Unavailable Maura Armendariz MD Unavailable Unavailable Maura Armendariz MD Unavailable Unavailable Marcello, S Norman ALCALA Unavailable Unavailable Marcello, S Norman ALCALA Unavailable Unavailable Marcello, S Norman ALCALA Unavailable Unavailable Marcello, S Norman ALCALA Unavailable Unavailable Marcello, S Norman ALCALA Unavailable Unavailable Marcello, S Norman ALCALA Unavailable Unavailable Marcello, S Norman ALCALA Unavailable Unavailable Marcello, S Norman ALCALA Unavailable Unavailable Marcello, S Norman ALCALA Unavailable Unavailable Marcello, S Norman ALCALA Unavailable Unavailable Marcello, S Norman ALCALA Unavailable Unavailable Marcello, S Norman ALCALA Unavailable Unavailable Marcello, S Norman MD Unavailable Unavailable Marcello, S Norman ALCALA Unavailable Unavailable Marcello, S Norman MD Unavailable Unavailable Marcello, S Norman ALCALA Unavailable Unavailable Marcello, S Norman ACLALA Unavailable Unavailable Marcello, S Norman ALCALA Unavailable Unavailable Marcello, S Norman ALCALA Unavailable Unavailable Marcello, S Norman ALCALA Unavailable Unavailable Marcello, S Norman ALCALA Unavailable Unavailable Marcello, S Norman ALCALA Unavailable Unavailable Marcello, S Norman ALCALA Unavailable Unavailable Marcello, S Norman ALCALA Unavailable Unavailable Marcello, S Norman ALCALA Unavailable Unavailable Marcello, S Norman ALCALA Unavailable Unavailable Marcello, S Norman ALCALA Unavailable Unavailable Marcello, S Norman ALCALA Unavailable Unavailable Marcello, S Norman ALCALA Unavailable Unavailable Marcello, S Norman ALCALA Unavailable Unavailable Marcello, S Norman ALCALA Unavailable Unavailable Marcello, Maura Austin MD Unavailable Unavailable Marcello, S Norman ALCALA Unavailable Unavailable LAROCK, J SEPIDEH COLD WORKING INSPECTOR Unavailable Unavailable LAROCK, J SEPIDEH COLD WORKING INSPECTOR Unavailable Unavailable LAROCK, J SEPIDEH COLD WORKING INSPECTOR Unavailable Unavailable LAROCK, J SEPIDEH COLD WORKING INSPECTOR Unavailable Unavailable LAROCK, J SEPIDEH COLD WORKING INSPECTOR Unavailable Unavailable LAROCK, J SEPIDEH COLD WORKING INSPECTOR Unavailable Unavailable LAROCK, J SEPIDEH COLD WORKING INSPECTOR Unavailable Unavailable LAROCK, J SEPIDEH COLD WORKING INSPECTOR Unavailable Unavailable LAROCK, J SEPIDEH COLD WORKING INSPECTOR Unavailable Unavailable LAROCK, J SEPIDEH COLD WORKING INSPECTOR Unavailable Unavailable LAROCK, J SEPIDEH COLD WORKING INSPECTOR Unavailable Unavailable LAROCK, J SEPIDEH COLD WORKING INSPECTOR Unavailable Unavailable LAROCK, J SEPIDEH COLD WORKING INSPECTOR Unavailable Unavailable LAROCK, J SEPIDEH COLD WORKING INSPECTOR Unavailable Unavailable LAROCK, J SEPIDEH COLD WORKING INSPECTOR Unavailable Unavailable LAROCK, J SEPIDEH COLD WORKING INSPECTOR Unavailable Unavailable LAROCK, J SEPIDEH COLD WORKING INSPECTOR Unavailable Unavailable LAROCK, J SEPIDEH COLD WORKING INSPECTOR Unavailable Unavailable LAROCK, J SEPIDEH COLD WORKING INSPECTOR Unavailable Unavailable LAROCK, J SEPIDEH COLD WORKING INSPECTOR Unavailable Unavailable LAROCK, J SEPIDEH COLD WORKING INSPECTOR Unavailable Unavailable LAROCK, J SEPIDEH COLD WORKING INSPECTOR Unavailable Unavailable Nikki METCALF MD Unavailable Unavailable Nikki METCALF MD Unavailable Unavailable Nikki METCALF MD Unavailable Unavailable Nikki METCALF MD Unavailable Unavailable METCALF, Nikki BLANCHARD MD Unavailable Unavailable METCALF, Nikki BLANCHARD MD Unavailable Unavailable METCALF, Nikki BLANCHARD MD Unavailable Unavailable METCALF, Nikki BLANCHARD MD Unavailable Unavailable METCALF, Nikki BLANCHARD MD Unavailable Unavailable METCALF, Nikki BLANCHARD MD Unavailable Unavailable METCALF, Nikki BLANCHARD MD Unavailable Unavailable METCALF, Nikki BLANCHARD MD Unavailable Unavailable METCALF, Nikki BLANCHARD MD Unavailable Unavailable METCALF, Nikki BLANCHARD MD Unavailable Unavailable METCALF, Nikki BLANCHARD MD Unavailable Unavailable METCALF, Nikki BLANCHARD MD Unavailable Unavailable METCALF, Nikki BLANCHARD MD Unavailable Unavailable METCALF, Nikki BLANCHARD MD Unavailable Unavailable METCALF, Nikki BLANCHARD MD Unavailable Unavailable METCALF, Nikki BLANCHARD MD Unavailable Unavailable METCALF, Nikki BLANCHARD MD Unavailable Unavailable METCALF, Nikki BLANCHARD MD Unavailable Unavailable METCALF, Nikki BLANCHARD MD Unavailable Unavailable METCALF, Nikki BLANCHARD MD Unavailable Unavailable METCALF, Nikki BLANCHARD MD Unavailable Unavailable METCALF, Nikki BLANCHARD MD Unavailable Unavailable METCALF, Nikki BLANCHARD MD Unavailable Unavailable METCALF, Nikki BLANCHARD MD Unavailable Unavailable METCALF, Nikki BLANCHARD MD Unavailable Unavailable METCALF, Nikki BLANCHARD MD Unavailable Unavailable METCALF, Nikki BLANCHARD MD Unavailable Unavailable METCALF, Nikki BLANCHARD MD Unavailable Unavailable METCALF, Nikki BLANCHARD MD Unavailable Unavailable METCALF, Nikki BLANCHARD MD Unavailable Unavailable METCALF, Nikki BLANCHARD MD Unavailable Unavailable METCALF, Nikki BLANCHARD MD Unavailable Unavailable METCALF, Nikki BLANCHARD MD Unavailable Unavailable METCALF, Nikki BLANCHARD MD Unavailable Unavailable METCALF, Nikki BLANCHARD MD Unavailable Unavailable METCALF, Nikki BLANCHARD MD Unavailable Unavailable METCALF, Nikki BLANCHARD MD Unavailable Unavailable METCALF, Nikki BLANCHARD MD Unavailable Unavailable METCALF, Nikki BLANCHARD MD Unavailable Unavailable METCALF, Nikki BLANCHRAD MD Unavailable Unavailable METCALF, Nikki BLANCHARD MD Unavailable Unavailable METCALF, Nikki BLANCHARD MD Unavailable Unavailable METCALF, Nikki BLANCHARD MD Unavailable Unavailable METCALF, Nikki BLANCHARD MD Unavailable Unavailable METCALF, Nikki BLANCHARD MD Unavailable Unavailable METCALF, Nikki BLANCHARD MD Unavailable Unavailable METCALF, Nikki BLANCHARD MD Unavailable Unavailable METCALF, Nikki BLANCHARD MD Unavailable Unavailable METCALF, Nikki BLANCHARD MD Unavailable Unavailable METCALF, Nikki BLANCHARD MD Unavailable Unavailable METCALF, Nikki BLANCHARD MD Unavailable Unavailable METCALF, Nikki BLANCHARD MD Unavailable Unavailable METCALF, Nikki BLANCHARD MD Unavailable Unavailable METCALF, Nikki BLANCHARD MD Unavailable Unavailable METCALF, Nikki BLANCHARD MD Unavailable Unavailable METCALF, Nikki BLANCHARD MD Unavailable Unavailable METCALF, Nikki BLANCHARD MD Unavailable Unavailable METCALF, Nikki BLANCHARD MD Unavailable Unavailable METCALF, Nikki BLANCHARD MD Unavailable Unavailable METCALF, Nikki BLANCHARD MD Unavailable Unavailable METCALF, Nikki BLANCHARD MD Unavailable Unavailable METCALF, Nikki BLANCHARD MD Unavailable Unavailable METCALF, Nikki BLANCHARD MD Unavailable Unavailable METCALF, Nikki BLANCHARD MD Unavailable Unavailable METCALF, Nikki BLANCHARD MD Unavailable Unavailable METCALF, Nikki BLANCHARD MD Unavailable Unavailable METCALF, Nikki BLANCHARD MD Unavailable Unavailable METCALF, Nikki BLANCHARD MD Unavailable Unavailable METCALF, Nikki BLANCHARD MD Unavailable Unavailable METCALF, Nikki BLANCHARD MD Unavailable Unavailable METCALF, Nikki BLANCHARD MD Unavailable Unavailable METCALF, Nikki BLANCHARD MD Unavailable Unavailable METCALF, Nikki BLANCHARD MD Unavailable Unavailable METCALF, Nikki BLANCHARD MD Unavailable Unavailable METCALF, Nikki BLANCHARD MD Unavailable Unavailable METCALF, Nikki BLANCHARD MD Unavailable Unavailable METCALF, Nikki BLANCHARD MD Unavailable Unavailable METCALF, Nikki BLANCHARD MD Unavailable Unavailable METCALF, Nikki BLANCHARD MD Unavailable Unavailable METCALF, Nikki BLANCHARD MD Unavailable Unavailable METCALF, Nikki BLANCHARD MD Unavailable Unavailable METCALF, Nikki BLANCHARD MD Unavailable Unavailable METCALF, Nikki BLANCHARD MD Unavailable Unavailable METCALF, Nikki BLANCHARD MD Unavailable Unavailable METCALF, Nikki BLANCHARD MD Unavailable Unavailable METCALF, Nikki BLANCHARD MD Unavailable Unavailable METCALF, Nikki BLANCHARD MD Unavailable Unavailable METCALF, Nikki BLANCHARD MD Unavailable Unavailable METCALF, Nikki BLANCHARD MD Unavailable Unavailable METCALF, Nikki BLANCHARD MD Unavailable Unavailable METCALF, Nikki BLANCHARD MD Unavailable Unavailable METCALF, Nikki BLANCHARD MD Unavailable Unavailable METCALF, Nikki BLANCHARD MD Unavailable Unavailable METCALF, Nikki BLANCHARD MD Unavailable Unavailable METCALF, Nikki BLANCHARD MD Unavailable Unavailable METCALF, Nikki BLANCHARD MD Unavailable Unavailable METCALF, Nikki BLANCHARD MD Unavailable Unavailable METCALF, Nikki BLANCHARD MD Unavailable Unavailable METCALF, Nikki BLANCHARD MD Unavailable Unavailable METCALF, Nikki BLANCHARD MD Unavailable Unavailable METCALF, Nikki BLANCHARD MD Unavailable Unavailable METCALF, Nikki BLANCHARD MD Unavailable Unavailable METCALF, Nikki BLANCHARD MD Unavailable Unavailable METCALF, Nikki BLANCHARD MD Unavailable Unavailable METCALF, Nikki BLANCHARD MD Unavailable Unavailable METCALF, Nikki BLANCHARD MD Unavailable Unavailable METCALF, Nikki BLANCHARD MD Unavailable Unavailable METCALF, Nikki BLANCHARD MD Unavailable Unavailable METCALF, Nikki BLANCHARD MD Unavailable Unavailable METCALF, Nikki BLANCHARD MD Unavailable Unavailable METCALF, Nikki BLANCHARD MD Unavailable Unavailable METCALF, Nikki BLANCHARD MD Unavailable Unavailable ZORAN-TIKA, SHANTE DO Unavailable Unavailable ZORAN-TIKA, SHANTE DO Unavailable Unavailable ZORAN-TIKA, SHANTE DO Unavailable Unavailable ZORAN-TIKA, SHANTE DO Unavailable Unavailable ZORAN-TIKA, SHANTE DO Unavailable Unavailable ZORAN-TIKA, SHANTE DO Unavailable Unavailable ZORAN-TIKA, SHANTE DO Unavailable Unavailable ZORAN-TIKA, SHANTE DO Unavailable Unavailable ZORAN-TIKA, SHANTE DO Unavailable Unavailable ZORAN-TIKA, SHANTE DO Unavailable Unavailable ZORAN-TIKA, SHANTE DO Unavailable Unavailable ZORAN-TIKA, SHANTE DO Unavailable Unavailable ZORAN-TIKA, SHANTE DO Unavailable Unavailable ZORAN-TIKA, SHANTE DO Unavailable Unavailable ZORAN-TIKA, SHANTE DO Unavailable Unavailable ZORAN-TIKA, SHANTE DO Unavailable Unavailable ZORAN-TIKA, SHANTE DO Unavailable Unavailable ZORAN-TIKA, SHANTE DO Unavailable Unavailable ZORAN-TIKA, SHANTE DO Unavailable Unavailable ZORAN-TIKA, SHANTE DO Unavailable Unavailable ZORAN-TIKA, SHANTE DO Unavailable Unavailable ZORAN-TIKA, SHANTE DO Unavailable Unavailable ZORAN-TIKA, SHANTE DO Unavailable Unavailable ZORAN-TIKA, SHANTE DO Unavailable Unavailable ZORAN-TIKA, SHANTE DO Unavailable Unavailable ZORAN-TIKA, SHANTE DO Unavailable Unavailable ZORAN-TIKA, SHANTE DO Unavailable Unavailable ZORAN-TIKA, SHANTE DO Unavailable Unavailable ZORAN-TIKA, SHANTE DO Unavailable Unavailable ZORAN-TIKA, SHANTE DO Unavailable Unavailable ZORAN-TIKA, SHANTE DO Unavailable Unavailable ZORAN-TIKA, SHANTE DO Unavailable Unavailable ZORAN-TIKA, SHANTE DO Unavailable Unavailable ZORAN-TIKA, SHANTE DO Unavailable Unavailable ZORAN-TIKA, SHANTE DO Unavailable Unavailable ZORAN-TIKA, HSANTE DO Unavailable Unavailable ZORAN-TIKA, SHANTE DO Unavailable Unavailable ZORAN-TIKA, SHANTE DO Unavailable Unavailable ZORAN-TIKA, SHANTE DO Unavailable Unavailable ZORAN-TIKA, SHANTE DO Unavailable Unavailable ZORAN-TIKA, SHANTE DO Unavailable Unavailable ZORAN-TIKA, SHANTE DO Unavailable Unavailable ZORAN-TIKA, SHANTE DO Unavailable Unavailable ZORAN-TIKA, SHANTE DO Unavailable Unavailable ZORAN-TIKA, SHANTE DO Unavailable Unavailable ZORAN-TIKA, SHANTE DO Unavailable Unavailable ZORAN-TIKA, SHANTE DO Unavailable Unavailable ZORAN-TIKA, SHANTE DO Unavailable Unavailable ZORAN-TIKA, SHANTE DO Unavailable Unavailable ZORAN-TIKA, SHANTE DO Unavailable Unavailable ZORAN-TIKA, SHANTE DO Unavailable Unavailable ZORAN-TIKA, SHANTE DO Unavailable Unavailable ZORAN-TIKA, SHANTE DO Unavailable Unavailable ZORAN-TIKA, SHANTE DO Unavailable Unavailable ZORAN-TIKA, SHANTE DO Unavailable Unavailable ZORAN-TIKA, SHANTE DO Unavailable Unavailable ZORAN-TIKA, SHANTE DO Unavailable Unavailable ZORAN-TIKA, SHANTE DO Unavailable Unavailable ZORAN-TIKA, SHANTE DO Unavailable Unavailable ZORAN-TIKA, SHANTE DO Unavailable Unavailable ZORAN-TIKA, SHANTE DO Unavailable Unavailable ZORAN-TIKA, SHANTE DO Unavailable Unavailable ZORAN-TIKA, SHANTE DO Unavailable Unavailable ZORAN-TIKA, SHANTE DO Unavailable Unavailable ZORAN-TIKA, SHANTE DO Unavailable Unavailable ZORAN-TIKA, SHANTE DO Unavailable Unavailable ZORAN-TIKA, SHANTE DO Unavailable Unavailable ZORAN-TIKA, SHANTE DO Unavailable Unavailable ZORAN-TIKA, SHANTE DO Unavailable Unavailable ZORAN-TIKA, SHANTE DO Unavailable Unavailable ZORAN-TIKA, SHANTE DO Unavailable Unavailable ZORAN-TIKA, SHANTE DO Unavailable Unavailable ZORAN-TIKA, SHANTE DO Unavailable Unavailable ZORAN-TIKA, SHANTE DO Unavailable Unavailable ZORAN-TIKA, SHANTE DO Unavailable Unavailable ZORAN-TIKA, SHANTE DO Unavailable Unavailable ZORAN-TIKA, SHANTE DO Unavailable Unavailable ZORAN-TIKA, SHANTE DO Unavailable Unavailable ZORAN-TIKA, SHANTE DO Unavailable Unavailable ZORAN-TIKA, SHANTE DO Unavailable Unavailable ZORAN-TIKA, SHANTE DO Unavailable Unavailable ZORAN-TIKA, SHANTE DO Unavailable Unavailable ZORAN-TIKA, SHANTE DO Unavailable Unavailable ZORAN-TIKA, SHANTE DO Unavailable Unavailable Angelo KILPATRICK MD Unavailable Unavailable Angelo KILPATRICK MD Unavailable Unavailable Angelo KILPATRICK MD Unavailable Unavailable Angelo KILPATRICK MD Unavailable Unavailable Angelo KILPATRICK MD Unavailable Unavailable Angelo KILPATRICK MD Unavailable Unavailable Angelo KILPATRICK MD Unavailable Unavailable Angelo KILPATRICK MD Unavailable Unavailable Angelo KILPATRICK MD Unavailable Unavailable Angelo KILPATRICK MD Unavailable Unavailable FINESSE, Angelo HARMON MD Unavailable Unavailable FINESSE, Angelo HARMON MD Unavailable Unavailable FINESSE, Angelo HARMON MD Unavailable Unavailable FINESSE, Angelo HARMON MD Unavailable Unavailable FINESSE, Angelo HARMON MD Unavailable Unavailable FINESSE, Angelo HARMON MD Unavailable Unavailable FINESSE, Angelo HARMON MD Unavailable Unavailable FINESSE, Angelo HARMON MD Unavailable Unavailable FINESSE, Angelo HARMON MD Unavailable Unavailable FINESSE, Angelo HARMON MD Unavailable Unavailable FINESSE, Angelo HARMON MD Unavailable Unavailable FINESSE, Angelo HARMON MD Unavailable Unavailable FINESSE, Angelo HARMON MD Unavailable Unavailable FINESSE, Angelo HARMON MD Unavailable Unavailable FINESSE, Angelo HARMON MD Unavailable Unavailable FINESSE, Angelo HARMON MD Unavailable Unavailable FINESSE, Angelo HARMON MD Unavailable Unavailable FINESSE, Angelo HARMON MD Unavailable Unavailable FINESSE, Angelo HARMON MD Unavailable Unavailable FINESSE, Angelo HARMON MD Unavailable Unavailable FINESSE, Angelo HARMON MD Unavailable Unavailable FINESSE, Angelo HARMON MD Unavailable Unavailable FINESSE, Angelo HARMON MD Unavailable Unavailable FINESSE, Angelo HARMON MD Unavailable Unavailable FINESSE, Angelo HARMON MD Unavailable Unavailable FINESSE, Angelo HARMON MD Unavailable Unavailable FINESSE, Angelo HARMON MD Unavailable Unavailable FINESSE, Angelo HARMON MD Unavailable Unavailable FINESSE, Angelo HARMON MD Unavailable Unavailable FINESSE, Angelo HARMON MD Unavailable Unavailable FINESSE, Angelo HARMON MD Unavailable Unavailable FINESSE, Angelo HARMON MD Unavailable Unavailable FINESSE, Angelo HARMON MD Unavailable Unavailable FINESSE, Angelo HARMON MD Unavailable Unavailable FINESSE, Angelo HARMON MD Unavailable Unavailable FINESSE, Angelo HARMON MD Unavailable Unavailable FINESSE, Angelo HARMON MD Unavailable Unavailable FINESSE, Angelo HARMON MD Unavailable Unavailable FINESSE, Angelo HARMON MD Unavailable Unavailable FINESSE, Angelo HARMON MD Unavailable Unavailable FINESSE, Angelo HARMON MD Unavailable Unavailable FINESSE, Angelo HARMON MD Unavailable Unavailable FINESSE, Angelo HARMON MD Unavailable Unavailable FINESSE, Angelo HARMON MD Unavailable Unavailable FINESSE, Angelo HARMON MD Unavailable Unavailable FINESSE, Angelo HARMNO MD Unavailable Unavailable FINESSE, Angelo HARMON MD Unavailable Unavailable FINESSE, Angelo HARMON MD Unavailable Unavailable FINESSE, Angelo HARMON MD Unavailable Unavailable FINESSE, B FAUSTINO MD Unavailable Unavailable FINESSE, B FAUSTINO MD Unavailable Unavailable FINESSE, B FAUSTINO MD Unavailable Unavailable FINESSE, B FAUSTINO MD Unavailable Unavailable FINESSE, B FAUSTINO MD Unavailable Unavailable FINESSE, B FAUSTINO MD Unavailable Unavailable FINESSE, B FAUSTINO MD Unavailable Unavailable FINESSE, B FAUSTINO MD Unavailable Unavailable FINESSE, B FAUSTINO MD Unavailable Unavailable FINESSE, B FAUSTINO MD Unavailable Unavailable FINESSE, B FAUSTINO MD Unavailable Unavailable FINESSE, B FAUSTINO MD Unavailable Unavailable FINESSE, B FAUSTINO MD Unavailable Unavailable FINESSE, B FAUSTINO MD Unavailable Unavailable FINESSE, B FAUSTINO MD Unavailable Unavailable FINESSE, B FAUSTINO MD Unavailable Unavailable FINESSE, B FAUSTINO MD Unavailable Unavailable FINESSE, B FAUSTINO MD Unavailable Unavailable FINESSE, B FAUSTINO MD Unavailable Unavailable FINESSE, B FAUSTINO MD Unavailable Unavailable FINESSE, B FAUSTINO MD Unavailable Unavailable FINESSE, B FAUSTINO MD Unavailable Unavailable FINESSE, B FAUSTINO MD Unavailable Unavailable FINESSE, B FAUSTINO MD Unavailable Unavailable FINESSE, B FAUSTINO MD Unavailable Unavailable FINESSE, B FAUSTINO MD Unavailable Unavailable FINESSE, B FAUSTINO MD Unavailable Unavailable FINESSE, B FAUSTINO MD Unavailable Unavailable FINESSE, B FAUSTINO MD Unavailable Unavailable Scozzari, K Kinjal PA Unavailable Unavailable Scozzari, K Kinjal PA Unavailable Unavailable Scozzari, K Kinjal PA Unavailable Unavailable Scozzari, K Kinjal PA Unavailable Unavailable Scozzari, K Kinjal PA Unavailable Unavailable Scozzari, K Kinjal PA Unavailable Unavailable Scozzari, K Kinjal PA Unavailable Unavailable Scozzari, K Kinjal PA Unavailable Unavailable Scozzari, K Kinjal PA Unavailable Unavailable Scozzari, K Kinjal PA Unavailable Unavailable Scozzari, K Kinjal PA Unavailable Unavailable Scozzari, K Kinjal PA Unavailable Unavailable Scozzari, K Kinjal PA Unavailable Unavailable Scozzari, K Kinjal PA Unavailable Unavailable Scozzari, K Kinjal PA Unavailable Unavailable Scozzari, K Kinjal PA Unavailable Unavailable Scozzari, K Kinjal PA Unavailable Unavailable Scozzari, K Kinjal PA Unavailable Unavailable Scozzari, K Kinjal PA Unavailable Unavailable Scozzari, K Kinjal PA Unavailable Unavailable Scozzari, K Kinjal PA Unavailable Unavailable Scozzari, K Kinjal PA Unavailable Unavailable Scozzari, K Kinjal PA Unavailable Unavailable Scozzari, K Kinjal PA Unavailable Unavailable Scozzari, K Kinjal PA Unavailable Unavailable Scozzari, K Kinjal PA Unavailable Unavailable Scozzari, K Kinjal PA Unavailable Unavailable Scozzari, K Kinjal PA Unavailable Unavailable Scozzari, K Kinjal PA Unavailable Unavailable Scozzari, K Kinjal PA Unavailable Unavailable Scozzari, K Kinjal PA Unavailable Unavailable Scozzari, K Kinjal PA Unavailable Unavailable Scozzari, K Kinjal PA Unavailable Unavailable Scozzari, K Kinjal PA Unavailable Unavailable Scozzari, K Kinjal PA Unavailable Unavailable Scozzari, K Kinjal PA Unavailable Unavailable Scozzari, K Kinjal PA Unavailable Unavailable Scozzari, K Kinjal PA Unavailable Unavailable Scozzari, K Kinjal PA Unavailable Unavailable Scozzari, K Kinjal PA Unavailable Unavailable Scozzari, K Kinjal PA Unavailable Unavailable Scozzari, K Kinjal PA Unavailable Unavailable Scozzari, K Kinjal PA Unavailable Unavailable Scozzari, K Kinjal PA Unavailable Unavailable Scozzari, K Kinjal PA Unavailable Unavailable Scozzari, K Kinjal PA Unavailable Unavailable Scozzari, K Kinjal PA Unavailable Unavailable ZORAN-TIKA, SHANTE DO Unavailable Unavailable ZORAN-TIKA, SHANTE DO Unavailable Unavailable ZORAN-TIKA, SHANTE DO Unavailable Unavailable ZORAN-TIKA, SHANTE DO Unavailable Unavailable ZORAN-TIKA, SHANTE DO Unavailable Unavailable ZORAN-TIKA, SHANTE DO Unavailable Unavailable ZORAN-TIKA, SHANTE DO Unavailable Unavailable ZORAN-TIKA, SHANTE DO Unavailable Unavailable ZORAN-TIKA, SHANTE DO Unavailable Unavailable ZORAN-TIKA, SHANTE DO Unavailable Unavailable ZORAN-TIKA, SHANTE DO Unavailable Unavailable ZORAN-TIKA, SHANTE DO Unavailable Unavailable ZORAN-TIKA, SHANTE DO Unavailable Unavailable ZORAN-TIKA, SHANTE DO Unavailable Unavailable ZORAN-TIKA, SHANTE DO Unavailable Unavailable ZORAN-TIKA, SHANTE DO Unavailable Unavailable ZORAN-TIKA, SHANTE DO Unavailable Unavailable ZORAN-TIKA, SHANTE DO Unavailable Unavailable ZORAN-TIKA, SHANTE DO Unavailable Unavailable ZORAN-TIKA, SHANTE DO Unavailable Unavailable ZORAN-TIKA, SHANTE DO Unavailable Unavailable ZORAN-TIKA, SHANTE DO Unavailable Unavailable ZORAN-TIKA, SHANTE DO Unavailable Unavailable ZORAN-TIKA, SHANTE DO Unavailable Unavailable ZORAN-TIKA, SHANTE DO Unavailable Unavailable ZORAN-TIKA, SHANTE DO Unavailable Unavailable ZORAN-TIKA, SHANTE DO Unavailable Unavailable ZORAN-TIKA, SHANTE DO Unavailable Unavailable ZORAN-TIKA, SHANTE DO Unavailable Unavailable ZORAN-TIKA, SHANTE DO Unavailable Unavailable ZORAN-TIKA, SHANTE DO Unavailable Unavailable ZORAN-TIKA, SHANTE DO Unavailable Unavailable ZORAN-TIKA, SHANTE DO Unavailable Unavailable ZORAN-TIKA, SHANTE DO Unavailable Unavailable ZORAN-TIKA, SHANTE DO Unavailable Unavailable ZORAN-TIKA, SHANTE DO Unavailable Unavailable ZORAN-TIKA, SHANTE DO Unavailable Unavailable ZORAN-TIKA, SHANTE DO Unavailable Unavailable ZORAN-TIKA, SHANTE DO Unavailable Unavailable ZORAN-TIKA, SHANTE DO Unavailable Unavailable ZORAN-TIKA, SHANTE DO Unavailable Unavailable ZORAN-TIKA, SHANTE DO Unavailable Unavailable ZORAN-TIKA, SHANTE DO Unavailable Unavailable ZORAN-TIKA, SHANTE DO Unavailable Unavailable ZORAN-TIKA, SHANTE DO Unavailable Unavailable ZORAN-TIKA, SHANTE DO Unavailable Unavailable ZORAN-TIKA, SHANTE DO Unavailable Unavailable ZORAN-TIKA, SHANTE DO Unavailable Unavailable ZORAN-TIKA, SHANTE DO Unavailable Unavailable ZORAN-TIKA, SHANTE DO Unavailable Unavailable ZORAN-TIKA, SHANTE DO Unavailable Unavailable ZORAN-TIKA, SHANET DO Unavailable Unavailable ZORAN-TIKA, SHANTE DO Unavailable Unavailable ZORAN-TIKA, SHANTE DO Unavailable Unavailable ZORAN-TIKA, SHANTE DO Unavailable Unavailable ZORAN-TIKA, SHANTE DO Unavailable Unavailable ZORAN-TIKA, SHANTE DO Unavailable Unavailable ZORAN-TIKA, SHANTE DO Unavailable Unavailable ZORAN-TIKA, SHANTE DO Unavailable Unavailable ZORAN-TIKA, SHANTE DO Unavailable Unavailable ZORAN-TIKA, SHANTE DO Unavailable Unavailable ZORAN-TIKA, SHANTE DO Unavailable Unavailable ZORAN-TIKA, SHANTE DO Unavailable Unavailable ZORAN-TIKA, SHANTE DO Unavailable Unavailable ZORAN-TIKA, SHANTE DO Unavailable Unavailable ZORAN-TIKA, SHANTE DO Unavailable Unavailable ZORAN-TIKA, SHANTE DO Unavailable Unavailable ZORAN-TIKA, SHANTE DO Unavailable Unavailable ZORAN-TIKA, SHANTE DO Unavailable Unavailable ZORAN-TIKA, SHANTE DO Unavailable Unavailable ZORAN-TIKA, SHANTE DO Unavailable Unavailable ZORAN-TIKA, SHANTE DO Unavailable Unavailable ZORAN-TIKA, SHANTE DO Unavailable Unavailable ZORAN-TIKA, SHANTE DO Unavailable Unavailable ZORAN-TIKA, SHANTE DO Unavailable Unavailable ZORAN-TIKA, SHANTE DO Unavailable Unavailable ZORAN-TIKA, SHANTE DO Unavailable Unavailable ZORAN-TIKA, SHANTE DO Unavailable Unavailable ZORAN-TIKA, SHANTE DO Unavailable Unavailable ZORAN-TIKA, SHANTE DO Unavailable Unavailable ZORAN-TIKA, SHANTE DO Unavailable Unavailable ZORAN-TIKA, SHANTE DO Unavailable Unavailable ZORAN-TIKA, SHANTE DO Unavailable Unavailable ZORAN-TIKA, SHANTE DO Unavailable Unavailable JOHN, RUBI Unavailable Unavailable ZORAN-TIKA, SHANTE DO Unavailable Unavailable ZORAN-TIKA, SHANTE DO Unavailable Unavailable ZORAN-TIKA, SHANTE DO Unavailable Unavailable ZORAN-TIKA, SHANTE DO Unavailable Unavailable ZORAN-TIKA, SHANTE DO Unavailable Unavailable ZORAN-TIKA, SHANTE DO Unavailable Unavailable ZORAN-TIKA, SHANTE DO Unavailable Unavailable ZORAN-TIKA, SHANTE DO Unavailable Unavailable ZORAN-TIKA, SHANTE DO Unavailable Unavailable ZORAN-TIKA, SHANTE DO Unavailable Unavailable ZORAN-TIKA, SHANTE DO Unavailable Unavailable ZORAN-TIKA, SHANTE DO Unavailable Unavailable ZORAN-TIKA, SHANTE DO Unavailable Unavailable ZORAN-TIKA, SHANTE DO Unavailable Unavailable ZORAN-TIKA, SHANTE DO Unavailable Unavailable ZORAN-TIKA, SHANTE DO Unavailable Unavailable ZORAN-TIKA, SHANTE DO Unavailable Unavailable ZORAN-TIKA, SHANTE DO Unavailable Unavailable ZORAN-TIKA, SHANTE DO Unavailable Unavailable ZORAN-TIKA, SHANTE DO Unavailable Unavailable ZORAN-TIKA, SHANTE DO Unavailable Unavailable ZORAN-TIKA, SHANTE DO Unavailable Unavailable ZORAN-TIKA, SHANTE DO Unavailable Unavailable ZORAN-TIKA, SHANTE DO Unavailable Unavailable ZORAN-TIKA, SHANTE DO Unavailable Unavailable ZORAN-TIKA, SHANTE DO Unavailable Unavailable ZORAN-TIKA, SHANTE DO Unavailable Unavailable ZORAN-TIKA, SHANTE DO Unavailable Unavailable ZORAN-TIKA, SHANTE DO Unavailable Unavailable ZORAN-TIKA, SHANTE DO Unavailable Unavailable ZORAN-TIKA, SHANTE DO Unavailable Unavailable ZORAN-TIKA, SHANTE DO Unavailable Unavailable ZORAN-TIKA, SHANTE DO Unavailable Unavailable ZORAN-TIKA, SHANTE DO Unavailable Unavailable ZORAN-TIKA, SHANTE DO Unavailable Unavailable ZORAN-TIKA, SHANTE DO Unavailable Unavailable ZORAN-TIKA, SHANTE DO Unavailable Unavailable ZORAN-TIKA, SHANTE DO Unavailable Unavailable ZORAN-TIKA, SHANTE DO Unavailable Unavailable ZORAN-TIKA, SHANTE DO Unavailable Unavailable ZORAN-TIKA, SHANTE DO Unavailable Unavailable ZORAN-TIKA, SHANTE DO Unavailable Unavailable ZORAN-TIKA, SHANTE DO Unavailable Unavailable ZORAN-TIKA, SHANTE DO Unavailable Unavailable ZORAN-TIKA, SHANTE DO Unavailable Unavailable ZORAN-TIKA, SHANTE DO Unavailable Unavailable ZORAN-TIKA, SHANTE DO Unavailable Unavailable ZORAN-TIKA, SHANTE DO Unavailable Unavailable ZORAN-TIKA, SHANTE DO Unavailable Unavailable ZORAN-TIKA, SHANTE DO Unavailable Unavailable ZORAN-TIKA, SHANTE DO Unavailable Unavailable ZORAN-TIKA, SHANTE DO Unavailable Unavailable ZORAN-TIKA, SHANTE DO Unavailable Unavailable ZORAN-TIKA, SHANTE DO Unavailable Unavailable ZORAN-TIKA, SHANTE DO Unavailable Unavailable ZORAN-TIKA, SHANTE DO Unavailable Unavailable ZORAN-TIKA, SHANTE DO Unavailable Unavailable ZORAN-TIKA, SHANTE DO Unavailable Unavailable ZORAN-TIKA, SHANTE DO Unavailable Unavailable ZORAN-TKIA, SHANTE DO Unavailable Unavailable ZORAN-TIKA, SHANTE DO Unavailable Unavailable ZORAN-TIKA, SHANTE DO Unavailable Unavailable ZORAN-TIKA, SHANTE DO Unavailable Unavailable ZORAN-TIKA, SHANTE DO Unavailable Unavailable ZORAN-TIKA, SHANTE DO Unavailable Unavailable ZORAN-TIKA, SHANTE DO Unavailable Unavailable ZORAN-TIKA, SHANTE DO Unavailable Unavailable ZORAN-TIKA, SHANTE DO Unavailable Unavailable ZORAN-TIKA, SHANTE DO Unavailable Unavailable ZORAN-TIKA, SHANTE DO Unavailable Unavailable ZORAN-TIKA, SHANTE DO Unavailable Unavailable ZORAN-TIKA, SHANTE DO Unavailable Unavailable ZORAN-TIKA, SHANTE DO Unavailable Unavailable ZORAN-TIKA, SHANTE DO Unavailable Unavailable ZORAN-TIKA, SHANTE DO Unavailable Unavailable ZORAN-TIKA, SHANTE DO Unavailable Unavailable ZORAN-TIKA, SHANTE DO Unavailable Unavailable ZORAN-TIKA, SHANTE DO Unavailable Unavailable ZORAN-TIKA, SHANTE DO Unavailable Unavailable ZORAN-TIKA, SHANTE DO Unavailable Unavailable ZORAN-TIKA, SHANTE DO Unavailable Unavailable ZORAN-TIKA, SHANTE DO Unavailable Unavailable ZORAN-TIKA, SHANTE DO Unavailable Unavailable ZORAN-TIKA, SHANTE DO Unavailable Unavailable MARLA, J SARAH [facility] Unavailable Unavailable MARLA, J [facility] Unavailable Unavailable MARLA, J [facility] Unavailable Unavailable MARLA, J SAR[facility] Unavailable Unavailable MARLA, J SARAH [facility] Unavailable Unavailable MARLA, J SAR[facility] Unavailable Unavailable MARLA, J [facility] Unavailable Unavailable MARLA, J [facility] Unavailable Unavailable MARLA, J [facility] Unavailable Unavailable MARLA, J [facility] Unavailable Unavailable MARLA, J [facility] Unavailable Unavailable MARLA, J [facility] Unavailable Unavailable MARLA, J [facility] Unavailable Unavailable MARLA, J [facility] Unavailable Unavailable MARLA, J SAR[facility] Unavailable Unavailable MARLA, J SAR[facility] Unavailable Unavailable MARLA, J [facility] Unavailable Unavailable MARLA, J [facility] Unavailable Unavailable MARLA, J [facility] Unavailable Unavailable MARLA, J [facility] Unavailable Unavailable MARLA, J [facility] Unavailable Unavailable MARLA, J SAR[facility] Unavailable Unavailable MARLA, J [facility] Unavailable Unavailable MARLA, J [facility] Unavailable Unavailable MARLA, [facility] Unavailable Unavailable MARLA, [facility] Unavailable Unavailable MARLA, [facility] Unavailable Unavailable MARCELLO, A JOSE DO Unavailable Unavailable MARCELLO, A JOSE DO Unavailable Unavailable MARCELLO, A JOSE DO Unavailable Unavailable MARCELLO, A JOSE DO Unavailable Unavailable MARCELLO, A JOSE DO Unavailable Unavailable MARCELLO, A JOSE DO Unavailable Unavailable MARCELLO, A JOSE DO Unavailable Unavailable MARCELLO, A JOSE DO Unavailable Unavailable MARCELLO, A JOSE DO Unavailable Unavailable MARCELLO, A JOSE DO Unavailable Unavailable MARCELLO, A JOSE DO Unavailable Unavailable MARCELLO, A JOSE DO Unavailable Unavailable MARCELLO, A JOSE DO Unavailable Unavailable MARCELLO, A JOSE DO Unavailable Unavailable MARCELLO, A JOSE DO Unavailable Unavailable MARCELLO, A JOSE DO Unavailable Unavailable MARCELLO, A JOSE DO Unavailable Unavailable MARCELLO, A JOSE DO Unavailable Unavailable MARCELLO, A JOSE DO Unavailable Unavailable MARCELLO, A JOSE DO Unavailable Unavailable MARCELLO, A JOSE DO Unavailable Unavailable MARCELLO, A JOSE DO Unavailable Unavailable Re-disclosure Warning The records that you are about to access may contain information from federally-assisted alcohol or drug abuse programs. If such information is present, then the following federally mandated warning applies: This information has been disclosed to you from records protected by federal confidentiality rules (42 CFR part 2). The federal rules prohibit you from making any further disclosure of this information unless further disclosure is expressly permitted by the written consent of the person to whom it pertains or as otherwise permitted by 42 CFR part 2. A general authorization for the release of medical or other information is NOT sufficient for this purpose. The Federal rules restrict any use of the information to criminally investigate or prosecute any alcohol or drug abuse patient.The records that you are about to access may contain highly sensitive health information, the redisclosure of which is protected by Article 27-F of the [facility] Public Health law. If you continue you may have access to information: Regarding HIV / AIDS; Provided by facilities licensed or operated by the [facility] Office of Mental Health; or Provided by the [facility] Office for People With Developmental Disabilities. If such information is present, then the following [facility] mandated warning applies: This information has been disclosed to you from confidential records which are protected by state law. State law prohibits you from making any further disclosure of this information without the specific written consent of the person to whom it pertains, or as otherwise permitted by law. Any unauthorized further disclosure in violation of state law may result in a fine or fci sentence or both. A general authorization for the release of medical or other information is NOT sufficient authorization for further disc losure. Allergies and Adverse Reactions Type Description Substance Reaction Status Data Source(s ) Allergy to substance No Known Allergies No known allergies (situation ) [place] (Misha Muñoz MD [facility]) Family History Family Member Name Family Member Gender Family Member Status Date o f Status Description Data Source(s) Unknown Male Problem [facility] ([facility] Unknown Unknown Problem MEDENT ([facility]) Unknown Unknown Problem MEDENT ([facility]) Unknown Unknown Problem MEDENT ([facility]) Unknown Female Problem [facility] ([facility]) Unknown Female Problem MEDENT ([facility]) Encounters Encounter Providers Location Date Indications Data Source(s ) Outpatient Attender: FAUSTINO KILPATRICK MD 01/20/2021 12:00:00 AM [facility] Outpatient 01/17/2021 12:00:00 AM [facility] Outpatient 01/14/2021 12:00:00 AM [facility] Recurring Patient Attender: LO METCALF MDReferrer: JACINTA BURROWS DO 01/10/2021 11:00:05 AM EDT [facility] Outpatient Attender: FAUSTINO Posadaserrer: SHANTE SÁNCHEZ DO [id number] 11/18/2020 12:00:00 AM [facility] Outpatient Attender: Norman Armendariz MD Main Office 11/15/2020 01:45:00 PM EDT MED[facility] ([facility]) Unknown [address] [facility], [facility] [address] 08/24/2020 12:00:00 AM EDT eCW1 ([facility]) Office Visit Attender: SHANTE BURROWS DO [facility] 06/10/2020 10:40:00 AM EDT [facility] Outpatient Attender: SARAH GUTIÉRREZ DPM PCConsultant: RUBI LOPEZ 06/07/2020 01:41:00 PM EDT - 06/07/2020 01:41:00 PM EDT [facility] Outpatient Attender: SARAH GUTIÉRREZ DPM PCConsultant: RUBI LOPEZ 05/24/2020 01:52:00 PM EST - 05/24/2020 01:52:00 PM EST [facility] Unknown [address] [facility] [address] 05/11/2020 12:00:00 AM EST eCW1 ([facility]) Outpatient Attender: SEPIDEH MARTINEZ NP 06/2020 01:58:34 PM EST - 04/28/2020 02:40:57 PM EST [facility] ([facility] ) Outpatient Attender: Kinjal Almeidaer: SHANTE SANTANA DO 04/22/2020 09:07:10 AM EST [facility] Rec[facility]ring Patient Attender: LO METCALF MDReferrer: JACINTA BURROWS DO 04/21/2020 09:40:08 AM EST [facility] Recurring Patient Attender: LO Soliser: JACINTA BURROWS DO 04/19/2020 10:22:09 AM EST [facility] Outpatient [address] [facility] [address] 03/28/2020 12:00:00 AM EST eCW1 ([facility]) Unknown [address] [facility] [facility] [address] 03/16/2020 12:00:00 AM EST eCW1 ([facility]) Outpatient Attender: SHANTE BURROWS DO [facility] 02/24/2020 08:00:00 AM EST [facility] ([facility]) ( [place]) [facility] Yearly DIRECTOR OF TAX SERVICES Exam [address] [place] [address] 02/02/2020 12:00:00 AM EST eCW1 ([facility]) Outpatient Attender: SHANTE BURROWS [facility] 01/07/2020 09:40:00 AM EDT MEDENT ([facility]) Outpatient Attender: SHANTE BURROWS [facility] 01/01/2020 09:00:00 AM EDT MEDENT ([facility]) Outpatient<td ID="encounterTypeDescripti onID0">NEW PATIENT WITH REFERRAL</td><td>Jose Armendariz DO</td><td>Misha Styles MD [facility]</td><td>12/22/2019</td><td>7:55AM</td><td>11:59PM</td><td><content ID="encounterDiagnosisID0-0">Dry Eye Syndrome</content>, <content ID="encounterDiagnosisID0-1">Cataract Senile Nuclear</content>, <content ID="encounterDiagnosisID0-2">Vitreous Disorders Degeneration</content></td> Attender: JOSE Gotti MD [facility] 12/22/2019 07:55:00 AM EDT - 12/22/2019 11:59:00 PM EDT Vitreous Disorders DegenerationCataract Senile NuclearDry Eye Syndrome [place] (Misha Muñoz MD [facility]) Vitreous Disorders Degeneration Cataract Senile Nuclear Dry Eye Syndrome Immunizations Vaccine Date Status Description Data Source(s) COVID-19 VACC, MRNA(PFIZER)/PF 01/07/2021 12:00:00 AM EDT completed [facility] COVID-19 VACCINE Pfizer 05/15/2020 12:00:00 AM EST completed [facility] Vaccine Series Complete: YESThis Data wa s Submitted to [facility] Via [facility]. COVID-19 VACCINE, MRNA, [id number], LNP-S (PFIZER)/PF 05/15/19 12:00:00 AM EST completed [facility] COVID-19 VACCINE Pfizer 04/24/2020 12:00:00 AM EST completed [facility] Vaccine Series Complete: NOThis Data was Submitted to [facility] Via [facility]. COVID-19 VACCINE, MRNA, [id number], LNP-S (PFIZER)/PF 04/24/19 12:00:00 AM EST completed [facility] INFLUENZA VIRUS VACCINE QUADRIVAL SPLIT (65 YR UP)/PF 11/23/2019 12:00:00 AM EDT completed [facility] Medications Medication Brand Name Start Date Product Form Dose Route Admi nistrative Instructions Pharmacy Instructions Status Indications Reaction Description Data Source(s) 1.479-0.188- 0.225 gram 11/16/2020 12:00:00 AM EDT tablet 24 DIRECTED DIRECTED SOLD: 11/16/2020 [facility] Sutab Sutab 11/15/2020 12:00:00 AM EDT active MEDENT ([facility]) 50 mcg 10/23/2020 12:00:00 AM EDT tablet 90 TAKE ONE TABLET BY MOUTH EVERY MORNING ON EMPTY STOMACH TAKE ONE TABLET BY MOUTH EVERY MORNING O N EMPTY STOMACH SOLD: 10/24/2020 [facility] 200 mg 10/20/2020 12:00:00 AM EDT capsule 35 TAKE 2 CAPSULES BY MOUTH EVERY 4 HOURS WHILE AWAKE 5 TIMES DAILY FOR 7 DAYS NEEDED FOR OUTBREAKS TAKE 2 CAPSULES BY MOUTH EVERY 4 HOURS WHILE AWAKE 5 TIMES DAILY FOR 7 DAYS NEEDED FOR OUTBREAKS SOLD: 10/23/2020 [facility] Hydrochlorothiazide 12.5 MG Oral Tablet HYDROCHLOROTHIAZIDE 10/20/2020 12:00:00 AM EDT tablet 90 TAKE ONE TABLET BY MOUTH TAKE ONE TABLET BY MOUTH EVERY DAY SOLD: 10/23/2020 [facility] irbesartan 150 MG Oral Tablet Irbesartan 150 MG Oral T ablet (AVAPRO) Irbesartan 150 MG Oral Tablet (AVAPRO) 10/20/2020 12:00:00 AM EDT 150 mg Oral active Take 150 mg by mouth daily [facility] 150 mg 10/20/2020 12:00:00 AM EDT tablet 90 TAKE ONE TABLET BY MOUTH EVERY DAY TAKE ONE TABLET BY MOUTH EVERY DAY SOLD: 10/23/2020 [facility] Hydrochlorothiazide 12.5 MG Oral Tablet HYDROCHLOROTHIAZIDE 07/27/2020 12:00:00 AM EDT tablet 90 TAKE ONE TABLET BY MOUTH PINKY DAY TAKE ONE TABLET BY MOUTH EVERY DAY SOLD: 08/01/2020 [facility] 200 mg 06/10/2020 12:00:00 AM EDT capsule 35 TAKE TWO CAPSULES BY MOUTH EVERY 4 HOURS WHILE AWAKE FIVE TIMES DAILY FOR 7 DAYS NEEDED FOR OUTBREAKS TAKE TWO CAPSULES BY MOUTH EVERY 4 HOURS WHILE AWAKE FIVE TIMES DAILY FOR 7 DAYS NEEDED FOR OUTBREAKS SOLD: 06/13/2020 [facility] Levothyroxine Sodium 0.05 MG Oral Tablet Levothyroxine Sodiu m 03/30/2020 12:00:00 AM EST ORAL active M EDENT ([facility]) 50 mcg 03/30/2020 12:00:00 AM EST tablet 90 TAKE ONE TABLET BY MOUTH EVERY MORNING ON AN EMPTY STOMACH TAKE ONE TABLET BY MOUTH EVERY MORNING O N AN EMPTY STOMACH SOLD: 04/03/2020 [facility] 50 mcg 03/30/2020 12:00:00 AM EST tablet 90 TAKE ONE TABLET BY MOUTH EVERY MORNING ON AN EMPTY STOMACH TAKE ONE TABLET BY MOUTH EVERY MORNING O N AN EMPTY STOMACH SOLD: 08/17/2020 [facility] 25 mg 03/30/2020 12:00:00 AM EST tablet 90 TAKE ONE TABLET BY MOUTH EVERY DAY TAKE ONE TABLET BY MOUTH EVERY DAY SOLD: 04/03/2020 [facility] 500 mg 03/12/2020 12:00:00 AM EST capsule 8 TAKE FOUR CAPSULES BY MOUTH 1 HOUR PRIOR TO DENTAL PROCEDURE TAKE FOUR CAPSULES BY MOUTH 1 HOUR PRIOR TO DENTAL PROCEDURE SOLD: 06/10/2020 [facility] 500 mg 03/12/2020 12:00:00 AM EST capsule 8 TAKE FOUR CAPSULES BY MOUTH 1 HOUR PRIOR TO DENTAL PROCEDURE TAKE FOUR CAPSULES BY MOUTH 1 HOUR PRIOR TO DENTAL PROCEDURE SOLD: 03/15/2020 [facility] Levothyroxine Sodium 0.05 MG Oral Tablet [Synthroid] Synthro id 03/07/2020 12:00:00 AM EST ORAL completed [facility] ([facility]) 500 mg 02/15/2020 12:00:00 AM EST tablet 28 TAKE ONE TABLET BY MOUTH FOUR TIMES A DAY UNTIL FINISHED TAKE ONE TABLET BY MOUTH FOUR TIMES A DA Y UNTIL FINISHED SOLD: 02/15/2020 [facility] 50 mcg 02/08/2020 12:00:00 AM EST tablet 90 TAKE ONE TABLET BY MOUTH EVERY MORNING TAKE ONE TABLET BY MOUTH EVERY MORNING SOLD: 02/10/2020 [facility] 300 mg 01/01/2020 12:00:00 AM EDT capsule 90 TAKE ONE CAPSULE BY MOUTH AT BEDTIME NEEDED TAKE ONE CAPSULE BY MOUTH AT BEDTIME NEEDED SOLD: 01/04/2020 [facility] gabapentin 300 MG Oral Capsule Gabapentin 300 MG Oral Capsule (NEURONTIN) Gabapentin 300 MG Oral Capsule (NEURONTIN) 01/01/2020 12:00:00 AM EDT aborted TAKE ONE CAPSULE BY MOUTH AT BED TIME NEEDED [facility] gabapentin 300 MG Oral Capsule Gabapentin 01/01/2020 12:00:00 AM EDT ORAL active MEDENT ([facility]) HCTZ 25 MG Oral Capsule HCTZ 25 MG Oral Capsule 12/22/2019 12:00:00 A M EDT 1 active HCTZ NALLELY ( Misha Muñoz MD [facility]) Levothyroxine Sodium 0.05 MG Oral Tablet [Synthroid] Synthroid 50 MCG Oral Tablet Synthroid 50 MCG Oral Tablet 12/22/2019 12:00:00 AM EDT 1 active levothyroxine sodium 0.05 MG Oral Tablet [Synthroid] NALLELY (Misha Muñoz MD [facility]) irbesartan 150 MG Oral Tablet Irbesartan 150 MG Oral T ablet Irbesartan 150 MG Oral Tablet 12/22/2019 12:00:00 AM EDT 1 active irbesartan 150 MG Oral Tablet NALLELY (Misha Muñoz MD [facility]) 25 mg 10/01/2019 12:00:00 AM EDT tablet 90 TAKE ONE TABLET BY MOUTH EVERY DAY TAKE ONE TABLET BY MOUTH EVERY DAY SOLD: 01/20/2020 [facility] 300 mg 09/21/2019 12:00:00 AM EDT tablet 90 TAKE ONE TABLET BY MOUTH EVERY DAY TAKE ONE TABLET BY MOUTH EVERY DAY SOLD: 12/11/2019 [facility] 50 mcg 08/14/2019 12:00:00 AM EDT tablet 90 TAKE ONE TABLET BY MOUTH EVERY MORNING TAKE ONE TABLET BY MOUTH EVERY MORNING SOLD: 11/26/2019 [facility] Acetaminophen 325 MG / Oxycodone Hydroch loride 5 MG Oral Tablet oxyCODONE- Acetaminophen 5-325 MG Oral Tablet (PERCOCET) oxyCODONE-Acetaminophen 5-325 MG Oral Tablet (PERCOCET) 06/10/2015 12:00:00 AM EDT aborted 1 tablet as needed [facility] Esomeprazole 20 MG Delayed Release Oral Capsule Esomeprazole Magnesium 20 MG Oral Capsule Delayed Release (NexIUM) Esomeprazole Magnesium 20 MG Oral Capsul e Delayed Release (NexIUM) aborted 1 capsule [facility] valsartan 80 MG Oral Tablet Valsartan 80 MG Oral Table t (Diovan) Valsartan 80 MG Oral Tablet (Diovan) aborted 1 tab [facility] valsartan 160 MG Oral Tablet Valsartan 160 MG Oral Tab let (DIOVAN) Valsartan 160 MG Oral Tablet (DIOVAN) aborted 1 tablet [facility] docosahexaenoic acid 120 MG / Eicosapent aenoic Acid 180 MG Oral Capsule Fish Oil 1000 MG Oral Capsule Fish Oil 1000 MG Oral Capsule aborted 1 [facility] Insurance Providers Payer name Policy type / Coverage type Policy ID Covered libertarian ID Covered libertarian's relationship to heath Policy Heath Plan Information BCBS OF [facility] 306/806 [id number] SP [id number] BCBS [facility] 306/806 [id number] SP [id number] [facility] U/W Commercial [id number] Self VYA [id number] Blue [place] Blue Shield P [id number] SELF [id number] [facility] U/W Commercial [id number] Self VYA BCBS OF [facility] 306/806 [id number] SP [id number] [facility] U/W Commercial [id number] Self VYA [id number] [facility] U/W Commercial [id number] Self [facility] U/W Commercial [id number] Self VYA [facility] U/W Commercial [id number] Self [id number] [id number] Blue Cross Blue Shield P [id number] SELF [id number] Medicare C [id number] SELF [id number] DME Jurisdiction A [facility] C [id number] SELF [id number] [facility] Medicare Passport F [id number] SELF [id number] [facility] AARP Supplemental F [id number] SELF [id number] [facility] Medicare Complete F [id number] SELF [id number] MEDICARE COMPLETE [id number] SP [id number] [employer] Co. [id number] Self [id number] Wellcare [facility] F [id number] SELF [id number] Well[employer] Health Plans Commercial Insurance Co. [id number] Torie f [id number] Well[employer] Health Plans Commercial Insurance Co. [id number] Torie f [id number] WELLCARE MEDICARE HMO G [id number] Self [id number] WELLCARE MEDICARE HMO G [id number] Self [id number] Medicare [place] Medicare Primary [id number] Self [id number] [place] [employer] Commercial [id number] Self [id number] AARP O [id number] S [id number] MEDICARE C [id number] S [id number] MEDICARE COMPLETE [id number] SP [id number] [facility] [id number] SP [id number] [facility] Medigap Part B [id number] Self [id number] [facility] Medigap Part B [id number] Self [id number] [facility] Medigap Part B [id number] Self [id number] BCBS [place] 306/806 [id number] SP [id number] [employer] BCBS B [id number] S [id number] [employer] BLUE CROSS BLUE SHIELD HEA [id number] [employer] [place] Commercial [id number] Self BCBS [place] PPO 302/307 [id number] SP [id number] WELLCARE [id number] SP [id number] MEDICARE COMPLETE [id number] SP [id number] MEDICARE COMPLETE [id number] SP [id number] WE[facility]CARE[facility] [place] [id number] 18 [id number] WELLCARE - [place] [id number] 18 [id number] MEDICARE COMPLETE-[facility] O [id number] S [id number] [facility] [id number] SP [id number] [facility] [id number] SP [id number] [facility] Medicare Solutions Medigap Part B [id number] Self [id number] [facility] Commercial [id number] Self [id number] Medicare [place] Medicare Primary [id number] Self [id number] [facility] Commercial [id number] Self [id number] [facility] Medcr Solu Commercial [id number] Self [id number] [facility] Medicare Solutions Medigap Part B [id number] Self [id number] [facility] Commercial [id number] Self [id number] Medicare [place] Medicare Primary [id number] Self [id number] [place] [employer] [id number] Self [id number] [facility] Commercial [id number] Self [id number] Medicare [place] Medicare Primary [id number] Self [id number] [place] [employer] [id number] Self [id number] [facility] OPTIONS [id number] SP [id number] MEDICARE [id number] SP [id number] [facility] Commercial [id number] Self [id number] Problems, Conditions, and Diagnoses Code Display Name Description Problem Type Effective Dates Data Source(s) [id number] Pain in left foot Pain in left foot Diagnosis 05/24/2020 01:52:00 PM [facility] B070 Plantar wart Plantar wart Diagnosis 05/24/2020 01:52:00 P M [facility] 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 nerve lesion Problem 05/24/2020 12:00:00 AM EST [facility] ([facility]) M72.2 Plantar fascial fibromatosis Plantar fascial fibromato sis Problem 05/24/2020 12:00:00 AM EST [facility] ([facility]) B07.0 Verruca plantaris Verruca plantaris Problem 05/24/2020 12:00:00 AM EST [facility] ([facility]) M79.672 Pain in limb Pain in limb Problem 05/24/2020 12:00:00 A M EST [facility] ([facility]) Z85.41 History of malignant neoplasm of cervix History of cervical cancer Problem 02/01/2020 12:00:00 AM EST eCW1 ([facility]) 379.21 Vitreous Disorders Degeneration Vitreous Disorders Deg eneration Problem 12/22/2019 12:00:00 AM EDT [facility] (Misha Muñoz MD [facility]) 375.15 Dry Eye Syndrome Dry Eye Syndrome Problem 12/22/2019 12 :00:00 AM EDT [facility] (Misha Muñoz MD [facility]) 366.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 Proble m 12/22/2019 12:00:00 AM EDT [facility] (Misha Muñoz MD [facility]) Surgeries/Procedures Procedure Description Date Indications Data Source(s) SURGERY CASE REQUEST OUTSIDE FACILITY ONLY <td>SURGERY CASE REQUEST OUTSIDE FACILITY ONLY</td><td>Routine</td><td>11/18/2020 11:28 AM EDT</td><td> Dupuytren's contracture of right hand</td><td></td> 11/18/2020 11:28:48 AM EDT Dupuytren's contracture of right hand [facility] Dupuytren's contracture of right hand OFFICE OUTPATIENT NEW 30 MINUTES 11/15/2020 12:00:00 A M EDT [facility] ([facility]) Destruction Benign Lesions Other Than Skin Tags Or Cutan Vas cular 05/24/2020 12:00:00 AM EST [facility] ([facility]) Omt 7-8 Body Regions 01/07/2020 12:00:00 AM [facility]T [facility] Surgical / procedural history Total Hip Replacement 2 016 Surgical / procedural history Total Hip Replacement 2016 12/22/2019 12:00:00 AM EDT [facility] (Misha Muñoz MD [facility]) Medical Eye Exam Medical Eye Exam 12/22/2019 12:00:00 AM EDT [facility] (Misha Muñoz MD [facility]) Results ID Date Data Source [id number] 11/18/2020 11:33:02 AM EDT [facility] Name Value Range Interpretation Code Description Data Lady rce(s) Supporting Document(s) Progress Note [facility] XGNUCp8tOgHYQkMl59/RIIxpXQZtm2ZzZWkuJVx9ELlfHMZgH0EuBGP5eX6pVNE6WXwRByRtRiQkNAW0 lbm OpRjcWJrNmPSLnSbxHYaYcJHibGtkwrXGsAJ1NlGE3FZZxG03wCBAuQCZpE1EdODL5JDP+Yn3BXYPfqE SoGC0NBrcP9Joif1j6UA2+RK9XqLZZY+WyqqzWeANjxOR4EWubtnuhZMtGcgoXTxymbXRUmh3KnrfuVj 8HVC5sr1zN4JPj/m86A3usmIs4tB7pSSBGwMs//stewart vCUJ3h13zFmrjHat6eUtRorZuOWnHzN/Cv7arTY+OzwPmOXG+eG5PYFmLhc+IkDLVq58FHefy+x8nmZm XPWwyH791nbnlallwZjwr8+fs/5x5GjI2m5GiyO96Wfb88GCUR/ALTAF/vrdc5lHjnkmWXZfCxzQY1GHgW c8ZX1F9Wm2aI0nEQnc3dpRmWJ/edr3rFPvPj6ZQEpD o4mUdOOTaJhK7svKQFXc1xlCpo2HPw8so6fW9Qurw/lbO7qYrvXi6/CEzXgJ8KKJBoBztnUriLojzWcw tWyWFFlAgh831+VzyQ3bvkxaxnxxZZDeLfyf969myRtbtHW8tfUkHMq5RF58TDK2Fr646+JyVjmQMd0D SAaI5c2yu4B8dJ1QWULQGlwOIqtNWPtwoC0Ei2B6y+ d73jz7kHnWtnA1aQX7Cd51AQzi1kKq+q2Shu3yFZzFqqbfU29yAG4W8CbV9K4nkU74YeaEd63u1Iehj7 ykwgAbCbE33cV+Oc6TXdnupvRXI8tsw5Puoh92byvkXm9beSJsKXdh2AXM4uE6qRYRVxQUHHX6ESn6KD UWXMPIefcASMsoHgZGHZreEAYnFjxeiCRoGLNUqG9l ZCuNXP3jKbXq5YJsm0ZBhMaEtcuB0vic5E+Disha/4RfIZRR5IieVepT5fmrRCLs+/RTdsVbwOks/zkYm89 0ia+5c9eG4DBq72BhWeA0isVBnCZwK68hnHXJd1ZWfCyuZ0LL51PpZW/CxKgov1e8Q8Iv5d84vSf1YUM VMY4I8ZONIiObrpbCrdSMWjzLEZSwnqzPfziNWVABi TRc6EMY8R1VNnjh7OSi12bB3MU7kudN7DJYFkDdd9LqT7IAyIEQYuT3bUfFThKkGVis3Jec3STsLwPp6 4FpMOh1wkhsh0YYRgHIcCnm2CMqIO23fv7sVbhuve+c9UhoXixa9sgFxTm8jYTRSI/8UVZjq8j0M0tI8 inyEPtJml8l9LQSToU07hIjpPN9hcl9HPlDq0zD3eM Y681imnH5+/AH2M0ZvYiA3aOPK5k1qrf/n2CQAUyZk1q2jOmmXFJ1zoTlZbbfbg4Pv/P9pQsYSUAwwO5 CzfuCPvlopHdzu3IEm6M2k5uYkmOJiY4dXN84v7Z8Cv3ZjNi3D7spj0WQfdGX8dY05YNiJz9SbWxJI3y rNcs/5M4Nfrh/WX/q3bb374T77OrkrQ3WcEF7cGgti PbIMWkdCuVk+C50yHBZnU3SaVGoBMr9UVuCGasyNVK94oKOyF0G03VSQ5hdszH3Vgf8FljPvBR/1S9f1 nw7Z0ggouDNfB+6vGdz5Wh11HD+AwiktHFA0VOv3zy0f7Nbl7nwJ0NwdfbUYCDgEdSeLwaBSispcVUWm SZ89R7n1fTcSdGxNyZBKXGIsJjrLqANQdj6G8VLk14 BkqJfOSZgZbMNMmPOUHZ9dlWDwF7clBKxUeDUEQHBBFhcDybPQPLkaDJT04zZgQyYwESkJyNtbLTFDVQ wmYoHoFQ8FsJUpegBxh5IhJ4Gn2At1flzPXhUE9f0SRjbJNzJI9n3MvReFHQBdmd5FwioCpI19FZl6NA SzxVfkokXIh/DV1kBfFgFvnhoxe/TewqeoGsGwovn6 [file] ICAgICAgICAgICAgICAgICAgICAgICAgICAgICAgICAgICAgICAgICAgICAgICAgICAgICAgICAgICAg IYWpDJUtQDHhYSBhUDVwWESuNSHaIQSxZLZxVCRfMOHeNLDsBH7DEKDlFKGcNUMgGKMwWRZsVQCoXRIq ICAgICAgICAgICAgICAgICAgICAgICAgICAgICAgIC AdYOSvVIXaRJGqFIIiPRPfFKXtJZOqZVCmHSQnKUOjXPYyQTBiIZVhEMVfVDBqZD8NAQYaJCNlMLXlDO AgICAgICAgICAgICAgICAgICAgICAgICAgICAgICAgICAgICAgICAgICAgICAgICAgICAgICAgICAgIC YiQXEyHETjSTXuFNXmXVNaWVMyPXYhMPJfCACeLU9K ICAgICAgICAgICAgICAgICAgICAgICAgICAgICAgICAgICAgICAgICAgICAgICAgICAgICAgICAgICAg OHHxSSIvNMOlAIYiZONoCWUoGKViJUXaZEKhRVPuFEQdUTSaZDDnFJ6DASBpAJFhEHUuMSVcOEPzDQXk ICAgICAgICAgICAgICAgICAgICAgICAgICAgICAgIC FlQOKoZLHlNMDfQMZiXUZvIBGqAXDdNMIxZXInSJQiAUTtGTAkXFMwFLJlVOKpRJPjPI6ZPIPuPQAzYJ AgICAgICAgICAgICAgICAgICAgICAgICAgICAgICAgICAgICAgICAgICAgICAgICAgICAgICAgICAgIC AgICAgICAgICAgICAgICAgICAgICAgICAgICAgICAg IA4SYQNtDUEuUFQcNGNqIKVyEHGjQKVhCHPbMMKvPJVrQIBhACGaAWFeYKExXXCyBQNaRPIfUWUbZOZu MYTwZNGfFFKzBJBjDQDoOTQoBTWfQHTpFTGkBYMjZHQdCYPaJENqVENmXK9YCTEwCDHsTTMqKROgQZRu ICAgICAgICAgICAgICAgICAgICAgICAgICAgICAgIC UyJAJoKXUxOYVqSDLpFCDmXXUcZCXoJQXjWXMkVQNfUYIsWOIgVBHvCIGoKTDhMMKsPPLyYS8KFYLbIR AgICAgICAgICAgICAgICAgICAgICAgICAgICAgICAgICAgICAgICAgICAgICAgICAgICAgICAgICAgIC AgICAgICAgICAgICAgICAgICAgICAgICAgICAgICAg TCLkKP1RDMPjYXFoQRJeWJUkUITnPHHdYJFgALAcPXQdKRAcZIVuTZWdBRUaMMJnMMBpNDMrGLKsAOQb PRHgDIRwIVPxNZEsHNDjSRHzPBDoNROiZJZxMJAqCOXsMJGyDKMkREWeYBQsGI2MMI03kYYyo4G8IZIc ZC3otvn/Hq8BTDdqvfIwsQWcZC7YXbWySI3urr2UHe LwSN5fqn9AJQzTJqUuG8Q0yLAlXFXdKNUVTpRzB61dOMxdUd74KLklXRLrDkOlDWj4Er6YXgPdX2dkCR IqZqM7IQNiEyWjGXtrNC5Ia8ZvkMTtIEz+Vp8DLS9cs2UrRGckFVPyKJ2mfb6SYCfDWlPaR8SwrdK4RX ScVZHnNv2YUAMxYYDgsLBzUBGuONMAMjKcR0TzjH75 IDENCj4+ICeoofCcPhqZFbEbLCPok1EeCZx0VT3LXEQgWAy0aYHrUIEuD0Fyz7CmSa31IKRnBlbnXa1i TDulTeY0pqyvCPNtFAUrGF2sAy1wLWPxBQQlPxArFTVZLQ2USLMjJGEyzRYeFRLsNVEPZY0TUCwmCQS2 ZBMeetKeaJJwCSvvUZ5KBTHwxzHeHBamCERAKHd+Pg 1NEL1fs6BaKHnzHVKgXR9hax8CCJsQSzAeZ8Y9pCHdA3H8LCgvUn9KFYHbPQRiNObmXPMKTSngGQ7EEJ 9nstD8IZ8ShBYqBQEpXRAnbVUtMKs2X56xdSDcGYtpCA9NDNW+Moira+Ub2BCVVqGBOwBNNbIhUkDPKMJw SoY8HsD9SOl3ObN7QnGE08yDuoduTuXUgrXA1INV7g FHHzLAYBZB8ObHWlmB8yryZtJYDjCTBRThGbK38osMUyZBUrTAS4YZQaVa1KZDYuP7DhsbHuhGodahUu TZPeKXRAMF8PUBpjrjJhuVTquAaqRZ86iVfuUQ3OSn3VVfOiWL3qkj9IbPJvRe8JHEStWz8LAYMbUREw XIJgVOR9ZJHiAnFjTJgrAGTjPEYoXJM3OJEeAVJgIW 4UDdAgNZXoLRsdVDyvMFYySSPtoc5NNFSmYMSrWBviFjYvAPCwJZAmQEjnWVZtXBYdDVA8PSHbGOXeMN 2WGsKtOMKqAAKlITPbFPFaRMZadz6ABCKdRHSySsK4WUWmNDPiTMDdRHvbNGGhLIYdXgC1SWOfXGZgCT 9VAiPpGUZnJAH2PHCfLCBdZVRada8QIFNdIIHcHzJ0 DjUqAHRfADQkCAvfMMOoVQQ4SKUrJJQiWMInTE6KOlVqIBSzTOH5LPMnMTOtQJAyub3VCSAaFRRfYDoh TZHdRKOmTCNtFKfjTIPrFMI8Buw5AYTaFKCvUE5TEtPuKWBbEIL1JZAdJGRzZLLuqj5HSXUqLJApPavl TLXtCBSnYNFzWJhdUYSfCNB0BLZmOABoOSKpRE9VAy NhHHZyBKamLJKoWKYdDHUand1GWTDfKULaOxV2MmJqLMYaJEOqGYkkCILzIJI1JVP4FRWhJGVsSR5ZHe TxNHDzBIteKIRcINBuUSGtez1DXVUaPNUzVRX9LKHcIMEoVLEoCOw3qoMovMCvASe6YE3RU5BrcqAwRi AOKv5Lq474UMScEDKrDy6TS2xvDe2vZINeWBODMv0D KIh6YtAkQbL7GMT9PoXfHWK3YtKuTURmENXlNxP7JUj0HNT+XLw4GSUuRkB8SaHqQvZ1UTlyUoK9AyU3 IGY9XvG6KaEmMY7tXGVOXu1+HCceaJBhbJrgYPMCDaK3KBo1IHprWHGWJf0T ID Date Data Source [id number] 11/18/2020 11:32:[address] [facility] Name Value Range Interpretation Code Description Data Lady rce(s) Supporting Document(s) Progress Note [facility] HQIFCn0jZiBYUjKs04/QDOrjIDYoy5HsYWcmMDp9NBfyOZXmP2YeDFM5vZ7gZLA2POtQEuHpMmZgCDR9 lbm [file] W09cN/ZtyIMdieJC413r0y9O+bKeQeSmID7Nb982kh1jmuk8UD5Y5UnmCLlBMm6k+sBf1nYFF2Dvx+truer pinion and wheel LclAsxEv4yHyZkQGGtaD/atC1u1AVqjLQyFUHyVeEsnHPZPAwYlvz4EO5Ymwy3AMrN4O/HM6e0jLScVj qs/e80LRppx6Nv543cPr5hhteBaWAN2Lobx6OtjH1d pSD7d2uToQ/56l+v3f+C72D6TMsD47K+vCXhagnZ9wPn17oVpWa3w3xtOv+wge3Y1I7viF48A4zosCqY cO3u97157zbHShEZGtgk62oXqDuQC8PBJ1V79V9VdlfQR+riGu21Dh/DXyj36kx6QEKUln2TlkTuAOo0 r6pT7Pdf76kl0omI3XitHyxTqj3WpizkA2mj7+WLbS IujF2GX8TAYUH4cFE7X3PRlVesfJM4uXr/hx3j6R8ZrMVbzNZuvXtoYPrkmjt6WB15LzWQvucnZtaHFu 396Of5qaUL7mDWVpeb7dNEiVEx9jUK1sjkKG56OjMCLJRwb0qDWcZ9wGzwn3U0Lv4h5Prc7nQNemiA0I PWiBA7Cb/pgECCvQkncelK9BaR5/tuJz690+5QM1Mf 3YZbmv8GqbV/QdNlRMAN6qGL+r+LP0Sgvv7HfIjv4fMp7TmwdgTjW23skF/hqiur9VTmR5RV+74xRlLX Pfn/Vc9lwSdhuuJF+4/UW3RL4s7Ng+lMx0EZ17hsKjB3Tu3cxR4AllBkpFedlm9Ken5Msh9CJdIPQC1Q 3RRYsp4PK6rfc22Xj61dK39mrdq1FRgm65szOpW758 [file] TRANSMISSION BUILDER/Nv1H5sate9V/BgH5sjvKjtLHmf3q5RLBatoKNCFWas0YmGc1PDOW6o7CtqZarVG1du5M1uR+FgWe [file] HK8oLEr+Lu7Ay9YhxeQ5xxTiWCrfAIL6Dz4CEZZVV3TEXb== ID Date Data Source [id number] 06/13/2020 08:27:00 AM EDT [facility] ([facility]) Name Value Range Interpretation Code Description Data Lady rce(s) Supporting Document(s) Traci (Hep2) Laboratory test result Normal (applies to non-n umeric results) [facility] ([facility]) <content>Negative <1:80</content>
<content>Borderline 1:80</content>
<content>Positive >1:80</content>
<content>Performed at: [facility]</content>
<content>[address], [place] [id number]</content>
<content>Pediatric Assistant: Samantha Moise MD, Phone: [phone]</content>
<content></content> ID Date Data Source [id number] 06/13/2020 08:27:00 AM EDT [facility] ([facility]) Name Value Range Interpretation Code Description Data Lady rce(s) Supporting Document(s) Lyme Disease IgG/IgM Antibodie Laboratory test result 0.00-0.90 Normal (applies to non-numeric results) [facility] <content>Negative <0.91</content >
<content>Equivocal 0.91 - 1.09</content>
<content>Positive >1.09</content>
<content></content> Lyme Disease IgM Ab Quantitati Laboratory test result 0.00-0.79 Normal (applies to non-numeric results) [facility] ([facility]) <content>Negative <0.80</content >
<content>Equivocal 0.80 - 1.19</content>
<content>Positive >1.19</content>
<content>.</content>
<content>IgM levels may peak at 3-6 weeks post infection, then</content>
<content>gradually decline.</content>
<content></content> ID Date Data Source [id number] 06/13/2020 08:27:00 AM EDT [facility] ([facility]) Name Value Range Interpretation Code Description Data Lady rce(s) Supporting Document(s) White Blood Count 5.3 10 4.0-10.0 Normal (applies to non-numeri c results) [facility] Red Blood Count 4.41 10 4.00-5.40 Normal (applies to non-numeric results) [facility] Hemoglobin 13.6 g/dL 12.0-15.5 Normal (applies to non-numeric resul ts) [facility] Hematocrit 41.5 % 36.0-47.0 Normal (applies to non-numeric resul ts) [facility] Mean Corpuscular Hemoglobin 30.8 pg 27.0-33.0 Norm al (applies to non-numeric results) [facility] ([facility]) Mean Corpuscular Volume 94.1 fl 80.0-96.0 Normal ( applies to non-numeric results) [facility] ([facility]) Platelet Count, Automated 296 10 150-450 Normal (applies to non-numeric results) [facility] ([facility]) Mean Corpuscular HGB Conc 32.8 g/dL 32.0-36.5 Normal (applies to non-numeric results) [facility] ([facility]) Red Cell Distribution Width 11.6 % 11.5-14.5 Norm al (applies to non-numeric results) [facility] ([facility]) Lymph % 24.0 % 24.0-44.0 Normal (applies to non-numeric resul ts) [facility] ([facility]) Elmore % 8.6 % 2.0-8.0 Above high normal [facility] ([facility]) Neutrophils % 65.1 % 36.0-66.0 Normal (applies to non-numeric re sults) [facility] ([facility]) Eos % 1.5 % 0.0-3.0 Normal (applies to non-numeric resul ts) [facility] ([facility]) Immature Granulocyte % 0.0 % 0-3.0 Normal (applies to non-n umeric results) [facility] ([facility]) Baso % 0.8 % 0.0-1.0 Normal (applies to non-numeric resul ts) [facility] ([facility]) Lymph # 1.3 10 1.5-5.0 Below low normal [facility] ( [facility]) Nucleated Red Blood Cell % 0.0 % 0-0 Normal (applies to n on-numeric results) [facility] ([facility]) Neutrophils # 3.4 10 1.5-8.5 Normal (applies to non-numeric re sults) [facility] ([facility]) Baso # 0.0 10 0.0-0.2 Normal (applies to non-numeric resul ts) [facility] ([facility]) Elmore # 0.5 10 0.0-0.8 Normal (applies to non-numeric resul ts) [facility] Eos # 0.1 10 0.0-0.5 Normal (applies to non-numeric resul ts) [facility] ID Date Data Source [id number] 06/13/2020 08:27:00 AM EDT [facility] ([facility]) Name Value Range Interpretation Code Description Data Lady rce(s) Supporting Document(s) Free T4 1.24 ng/dL 0.76-1.46 Normal (applies to non-numeric resul ts) [facility] Thyroid Stimulating Hormone 2.400 uIU/ML 0.358-3.740 Norm al (applies to non- numeric results) [facility] ID Date Data Source [id number] 06/13/2020 08:27:00 AM EDT [facility] ([facility]) Name Value Range Interpretation Code Description Data Lady rce(s) Supporting Document(s) Calcidiol [Mass/volume] in Serum or Plasma 34.4 ng/mL 30.0- 100.0 Normal (applies to non-numeric results) [facility] ID Date Data Source [id number] 06/13/2020 08:27:00 AM EDT [facility] ([facility]) Name Value Range Interpretation Code Description Data Lady rce(s) Supporting Document(s) Creatinine For GFR 0.91 mg/dL 0.55-1.30 Normal (applies to non -numeric results) [facility] Blood Urea Nitrogen 14 mg/dL 7-18 Normal (applies to non-nume katya results) [facility]) Glucose, Fasting 89 mg/dL 70-100 Normal (applies to non-numeric results) [facility] ([facility]) Glomerular Filtration Rate Laboratory test result Normal (applies to non- numeric results) [facility] ([facility]) <content>Units are mL/min/1.73 m2</content>
<content></content>
<content>Chronic Kidney Disease Staging per NKF:</content>
<content></content>
<content>Stage I & II GFR >=60 Normal to Mildly Decreased</content>
<content>Stage III GFR 30- 59 Moderately Decreased</content>
<content>Stage IV GFR 15-29 Severely Decreased</content>
<content>Stage V GFR <15 Very Little GFR Left</content>
<content>ESRD GFR <15 on HEALTH INFORMATION TECHNOLOGIST</content>
<content></content> Potassium Serum 4.2 meq/L 3.5-5.1 Normal (applies to non-numeric results) [facility] ([facility]) Sodium Level 140 meq/L 136-145 Normal (applies to non-numeric res ults) [facility] ([facility]) Carbon Dioxide Level 26 meq/L 21-32 Normal (applies to non-num daniel results) [facility] ([facility]) Chloride Level 108 meq/L 98-107 Above high normal [facility] ([facility]) Anion Gap 6 meq/L 8-16 Below low normal [facility] ( [facility]) Alt/SGPT 21 U/L 12-78 Normal (applies to non-numeric resul ts) [facility] ([facility]) Calcium Level 9.2 mg/dL 8.8-10.2 Normal (applies to non-numeric re sults) [facility] ([facility]) Ast/Sgot 14 U/L 7-37 Normal (applies to non-numeric resul ts) [facility] ([facility]) Total Protein 6.3 GM/DL 6.4-8.2 Below low normal [facility] ([facility]) Bilirubin,Total 0.9 mg/dL 0.2-1.0 Normal (applies to non-numeric results) [facility] ([facility]) Alkaline Phosphatase 70 U/L 45-117 Normal (applies to non-num daniel results) [facility] ([facility]) Albumin 3.5 GM/DL 3.2-5.2 Normal (applies to non-numeric resul ts) [facility] ([facility]) Albumin/Globulin Ratio 1.3 1.2-2.2 Normal (applies to non-n umeric results) [facility] ([facility]) ID Date Data Source [id number] 06/13/2020 08:27:00 AM EDT [facility] ([facility]) Name Value Range Interpretation Code Description Data Lady rce(s) Supporting Document(s) Cholesterol Level 201 mg/dL Above high normal [facility] ([facility]) HDL Cholesterol 50 mg/dL Normal (applies to non-numeric results) [facility] ([facility]) Triglycerides Level 80 mg/dL Normal (applies to non-nume katya results) [facility] ([facility]) LDL Cholesterol 135 mg/dL Above high normal [facility] ([facility]) Non-HDL-C 151 mg/dL Normal (applies to non-numeric resul ts) [facility] ([facility]) Cholesterol Risk Ratio 4.020 Normal (applies to non-n umeric results) [facility] ID Date Data Source [id number] 04/22/2020 09:07:10 AM EST [facility] PCName: Alec RosalesDOB: 2Provider: Rachel Bey: 04/21/2020 Reason For VisitFlorence Esteban is here today for left hip. Alec Rosales is an established patient here for follow up. Surgery DOS: 02/22/2016. Surgery Description: left hip replacement. The patient has not had a course of physical therapy for greater than 4 weeks. The patient has not had a course of NSAIDs for greater than 4 weeks. Patient is retired. History of Present IllnessPatient follows up today for her left hip, she is status post total hip replacement. This was done via direct anterior approach. Patient states occasionally she will have some groin pain. She states she notices it mostly when she overdoes it. She does have some difficulty lifting her leg when she does have a flareup of pain. She states it typically goes away on its own. She is also here for her left knee which is a new problem for us for her. She has had issues with this knee for some time. She injured it last winter skiing and has had consistent issues but it flared up quite a bit in the fall when she was doing a lot of painting and she was up and down the lateral a lot. She states she had difficulty squatting at that time as well as with stairs. She does note some crepitus in the knee. She states if she moves the knee just right now she has pretty significant pain. She rates it as an 8 out of 10 at times. S he been working with physical therapy which was prescribed by her PCP. She is not taking any anti-inflammatories currently. Results/DataSide: Left Site: Knee Views: 4 Views, AP, Lateral, Obliques Findings: Medial degenerative change of a mild degree. Findings: Lateral degenerative change of a mild degree. Findings: patello-femoral degenerative change of a moderate degree. XRays were ordered, obtained and interpreted today in the office. Indication: pain/dysfunction. Side: Left Site: Knee Views: 1 View, 's standing AP mild degenerative changes in both medial lateral compartments but severe arthritis with qxus-su-tual contact within the patellofemoral joint. XRays previously taken at [facility] were reviewed today. XRays were ordered, obtained and interpreted today in the office. Indication: pain/dysfunction. Side: Left Site: Hip, Pelvis Views: 3 Views, and Pelvis Findings: no new fractures or dislocations. No evidence of bearing wear, osteolysis, implant migration or loosening. the joint remains reduced. hardware/implant is in good position. AssessmentPatient is status post left total hip replacement. She also has left knee severe primary patellofemoral osteoarthritis Plan<OBX.5.1><OBX.5.1.1> X-Ray I Hip-Uni </OBX.5.1.1><OBX.5.1.2> Pelvis - 2 or 3 views (XRays were ordered, obtained and interpreted</OBX.5.1.2></OBX.5.1>today in the office. Indication: pain/dysfunction.); Status:Complete; Done: 21Apr2020 Perform:SOS14 (General); Due:[id number]; Last Updated By:Erick Pitts; 04/21/2020 9:59:46 AM;Ordered; For:Primary localized osteoarthritis of left hip; Ordered By:Kinjal Bey;Weight Bearing Status : Weight bearing X-Ray I Knee - 2 views (XRays were ordered, obtained and interpreted today in theoffice. Indication: pain/dysfunction.); Status:Complete; Done: 21Apr2020 Perform:SOS14 (General); Due:[id number]; Last Updated By:Erick Pitts; 04/21/2020 10:12:38 AM;Ordered; For:Primary localized osteoarthritis of left hip; Ordered By:Kinjal Bey;Weight Bearing Status : Weight bearingLaterality: : Left Patient does have some occasional groin pain on the left side but she does not think that it bothers her enough to do anything at this time. She tries to avoid anti- inflammatories as she had a history of some renal insufficiency at 1 point. In regards to her left knee she does have severe patellofemoral arthritis. She is going to live with her symptoms now. She really does not want to proceed with cortisone injection. She does not want surgery. She is not working with physical therapy which was prescribed by her PCP and she has found this helpful. I encouraged her to continue with the exercises which will hopefully help keep her symptoms at bay for now. We went over activities that could potentially aggravate the knee. She will follow-up as scheduled with Dr. Metcalf for her left hip replacement. She did not want to change this appointment. Work / School NoteThe patient is not working at this time. Alec Rosales is retired. This document was dictated and electronically signed using [employer] Speaking software. A reasonable attempt at proof reading has been made to minimize errors. Please call with any questions. Signatures Electronically signed by : Kinjal Bey PA-C; Apr 21 2020 10:24AM EST (Author) Electronically signed by : Lo Metcalf M.D.; Apr 22 2020 9:07AM EST (Author) Name Value Range Interpretation Code Description Data Lady rce(s) Supporting Document(s) ID Date Data Source [id number] 02/24/2020 02:31:00 PM EST [facility] ([facility]) Name Value Range Interpretation Code Description Data Lady rce(s) Supporting Document(s) Thyroxine (T4) free [Mass/volume] in Serum or Plasma 1.11 ng/dL 0.76-1.46 Normal (applies to non-numeric results) [facility] ([facility]) C reactive protein [Mass/volume] in Serum or Plasma by High sensitivity method Laboratory test result 0.00-0.30 Normal (applies to non-numeric results) [facility] ([facility]) Erythrocyte sedimentation rate by Westergren method 9 mm/hr 0-30 Normal (applies to non-numeric results) [facility]) ID Date Data Source [id number] 02/24/2020 02:31:00 PM EST [facility] Name Value Range Interpretation Code Description Data Lady rce(s) Supporting Document(s) Lyme Disease IgG/IgM Antibodie Laboratory test result 0.00-0.90 Normal (applies to non-numeric results) [facility] ([facility]) <content>Negative <0.91</content >
<content>Equivocal 0.91 - 1.09</content>
<content>Positive >1.09</content>
<content></content> Lyme Disease IgM Ab Quantitati Laboratory test result 0.00-0.79 Normal (applies to non-numeric results) [facility] ([facility]) <content>Negative <0.80</content >
<content>Equivocal 0.80 - 1.19</content>
<content>Positive >1.19</content>
<content>.</content>
<content>IgM levels may peak at 3-6 weeks post infection, then</content>
<content>gradually decline.</content>
<content>Performed at: [facility] [place]</content>
<content>[address] [place] [id number]</content>
<content>Pediatric Assistant: Samantha Moise MD, Phone: [phone]</content>
<content></content> ID Date Data Source [id number] 02/24/2020 02:31:00 PM EST MED[facility] ([facility]) Name Value Range Interpretation Code Description Data Lady rce(s) Supporting Document(s) Hemoglobin 13.1 g/dL 12.0-15.5 Normal (applies to non-numeric resul ts) [facility] ([facility]) White Blood Count 6.7 10 4.0-10.0 Normal (applies to non-numeri c results) [facility] ([facility]) Red Blood Count 4.20 10 4.00-5.40 Normal (applies to non-numeric results) [facility] ([facility]) Mean Corpuscular Hemoglobin 31.2 pg 27.0-33.0 Norm al (applies to non-numeric results) [facility] ([facility]) Mean Corpuscular Volume 98.1 fl 80.0-96.0 Above high normal [facility] ([facility]) Hematocrit 41.2 % 36.0-47.0 Normal (applies to non-numeric resul ts) [facility] ([facility]) Red Cell Distribution Width 12.5 % 11.5-14.5 Norm al (applies to non-numeric results) [facility] ([facility]) Mean Corpuscular HGB Conc 31.8 g/dL 32.0-36.5 Below low normal [facility] ([facility]) Platelet Count, Automated 274 10 150-450 Normal (applies to non-numeric results) [facility] ([facility]) Neutrophils % 71.7 % 36.0-66.0 Above high normal MEDE NT ([facility]) Lymph % 18.2 % 24.0-44.0 Below low normal [facility] ( [facility]) [place] % 8.1 % 0.0-5.0 Above high normal [facility] ([facility]) Eos % 1.3 % 0.0-3.0 Normal (applies to non-numeric resul ts) [facility] ([facility]) Immature Granulocyte % 0.1 % 0-3.0 Normal (applies to non-n umeric results) [facility] ([facility]) Baso % 0.6 % 0.0-1.0 Normal (applies to non-numeric resul ts) [facility] ([facility]) Neutrophils # 4.8 10 1.5-8.5 Normal (applies to non-numeric re sults) [facility] ([facility]) Lymph # 1.2 10 1.5-5.0 Below low normal [facility] ( [facility]) Nucleated Red Blood Cell % 0.0 % 0-0 Normal (applies to n on-numeric results) [facility] ([facility]) [place] # 0.5 10 0.0-0.8 Normal (applies to non-numeric resul ts) [facility] ([facility]) Eos # 0.1 10 0.0-0.5 Normal (applies to non-numeric resul ts) [facility] ([facility]) Baso # 0.0 10 0.0-0.2 Normal (applies to non-numeric resul ts) [facility] ([facility]) ID Date Data Source [id number] 02/24/2020 02:31:00 PM EST [facility] ([facility]) Name Value Range Interpretation Code Description Data Lady rce(s) Supporting Document(s) Thyroglobulin Ab [Units/volume] in Serum or Plasma Laboratory te st result Normal (applies to non-numeric results) [facility] Thyrotropin [Units/volume] in Serum or Plasma 2.720 uIU/ML 0. 358-3.740 Normal (applies to non-numeric results) [facility] ([facility]) ID Date Data Source [id number] 02/24/2020 12:00:00 AM EST [facility] Shante Coombs DO Patient Name: ALEC ROSALES[address] Date of : [address] Date of Exam: 02/24/2020MYRON Murrell [id number]#: Fax: [phone] EXAM: KNEE LEFT (COMPLETE) X-RAYCLINICAL INFORMATION: Chronic atraumatic pain.Five views.There are no prior left knee xrays for comparison.There is tricompartmental marginal osteophytosis with mild medial andlateral compartmental narrowing and kwkowryi-fv-lxrbqi patellofemoral jointspace narrowing. There is no acute fracture, dislocation, or subluxation.IMPRESSION:Chronic changes as described above.MAMADOU Larsen/Rudolph you for referring ALEC ROSALES to our office. Electronically Signed - LUCIO VILLALOBOS DO 02/24/20 13:25 Name Value Range Interpretation Code Description Data Lady rce(s) Supporting Document(s) ID Date Data Source [id number] 12/28/2019 10:33:00 AM EDT [facility] ([facility]) Name Value Range Interpretation Code Description Data Lady rce(s) Supporting Document(s) Thyroxine (T4) free [Mass/volume] in Serum or Plasma 1.05 ng/dL 0.76-1.46 Normal (applies to non-numeric results) [facility] ([facility]) Thyrotropin [Units/volume] in Serum or Plasma 1.900 uIU/ML 0. 358-3.740 Normal (applies to non-numeric results) [facility] ([facility]) Procedure Social History Code Duration Value Status Description Data Source(s ) Alcohol intake 11/18/2020 12:00:00 AM EDT Ex-drinker (finding) comp leted Ex- drinker (finding) [facility] Tobacco use and exposure 11/18/2020 12:00:00 AM EDT Never used co mpleted Never used [facility] Smoking 11/18/2020 12:00:00 AM EDT Never smoker completed Never s [facility] Smoking 06/10/2020 12:00:00 AM EDT Quit completed Quit [facility] ([facility]) Smoking 05/24/2020 12:00:00 AM EST Never Smoked A Pipe complet ed Never Smoked A Pipe [facility] ([facility]) Smoking 03/28/2020 12:00:00 AM EST Former Smoker completed Former Smoker eCW1 ([facility]) Smoking 03/28/2020 12:00:00 AM EST Former Smoker completed Former Smoker eCW1 ([facility]) Smoking 03/28/2020 12:00:00 AM EST Former Smoker completed Former Smoker eCW1 ([facility]) Smoking 02/02/2020 12:00:00 AM EST Former Smoker completed Former Smoker eCW1 ([facility]) Smoking 02/02/2020 12:00:00 AM EST Former Smoker completed Former Smoker eCW1 ([facility]) Smoking 02/02/2020 12:00:00 AM EST Former Smoker completed Former Smoker eCW1 ([facility]) Smoking 12/22/2019 08:53:51 AM EDT Ex-smoker (finding) complet ed Ex-smoker (finding) NALLELY (Misha Muñoz MD [facility]) Vital Signs ID Date Data Source UNK Name Value Range Interpretation Code Description Data Source(s) Body temperature 96.4 [degF] 96.4 [degF] [facility] ([facility]) Body height 67 [in_i] 67 [in_i] [facility] Body weight 220.00 [lb_av] 220.00 [lb_av] MEDEN T ([facility]) Systolic blood pressure 130 mm[Hg] 130 mm[Hg] M EDENT ([facility]) Diastolic blood pressure 80 mm[Hg] 80 mm[Hg] [facility] ([facility]) Heart rate 67 /min 67 /min [facility] Body mass index (BMI) [Ratio] 34.5 kg/m2 34.5 k g/m2 [facility] ([facility]) Body weight 99.792 kg 99.792 kg [facility]) Systolic blood pressure 118 mm[Hg] 118 mm[Hg] M EDENT ([facility]) Diastolic blood pressure 68 mm[Hg] 68 mm[Hg] [facility] ([facility]) Body height 67 [in_i] 67 [in_i] [facility] ([facility]) 5'7" Body weight 217.00 [lb_av] 217.00 [lb_av] MEDEN T ([facility]) Body mass index (BMI) [Ratio] 34.0 kg/m2 34.0 k g/m2 [facility] ([facility]) Heart rate 80 /min 80 /min [facility] ([facility]) Body temperature 97.4 [degF] 97.4 [degF] [facility] ([facility]) Oxygen saturation in Arterial blood by Pulse oximetry 99 % 99 % [facility] ([facility]) [place] body weight 135 [lb_av] 135 [lb_av] MEDEN T ([facility]) Body weight 200.00 [lb_av] 200.00 [lb_av] MEDEN T ([facility]) Body weight 90.720 kg 90.720 kg [facility] ([facility]) Body height 67 [in_i] 67 [in_i] [facility] ([facility]) 5'7" Body mass index (BMI) [Ratio] 31.3 kg/m2 31.3 k g/m2 [facility] ([facility]) Body surface area Derived from formula 2.02 m2 2.02 m2 [facility] ([facility]) Body weight 228.1 [lb_av] 228.1 [lb_av] eCW1 ([facility]) Body weight 103.46 kg 103.46 kg eCW1 ([facility]) Body height 67 [in_i] 67 [in_i] eCW1 ([facility]) Body mass index (BMI) [Ratio] 35.72 kg/m2 35.72 kg/m2 eCW1 ([facility]) Heart rate 77 /min 77 /min eCW1 ([facility]) Respiratory rate 18 /min 18 /min eCW1 ([facility]) Body temperature 98.2 [degF] 98.2 [degF] eCW1 ( [facility]) Systolic blood pressure 132 mm[Hg] 132 mm[Hg] e CW1 ([facility]) Diastolic blood pressure 78 mm[Hg] 78 mm[Hg] eCW1 ([facility]) Body height 67 [in_i] 67 [in_i] [facility] ([facility]) 5'7" Body weight 222.00 [lb_av] 222.00 [lb_av] MEDEN T ([facility]) Body mass index (BMI) [Ratio] 34.8 kg/m2 34.8 k g/m2 [facility] ([facility]) Systolic blood pressure 138 mm[Hg] 138 mm[Hg] M EDENT ([facility]) Diastolic blood pressure 78 mm[Hg] 78 mm[Hg] [facility] ([facility]) Respiratory rate 18 /min 18 /min [facility] ( [facility]) Body temperature 96.8 [degF] 96.8 [degF] [facility] ([facility]) Oxygen saturation in Arterial blood by Pulse oximetry 99 % 99 % [facility] Heart rate 87 /min 87 /min [facility] ([facility]) [place] body weight 135 [lb_av] 135 [lb_av] MEDEN T ([facility]) Body weight 224 [lb_av] 224 [lb_av] [facility] Body weight 101.6 kg 101.6 kg [facility] ([facility]) Body height 67 [in_i] 67 [in_i] W1 ([facility]) Body mass index (BMI) [Ratio] 35.08 kg/m2 35.08 kg/m2 W1 ([facility]) Systolic blood pressure 144 mm[Hg] 144 mm[Hg] e CW1 ([facility]) Diastolic blood pressure 72 mm[Hg] 72 mm[Hg] eCW1 ([facility]) Systolic blood pressure 128 mm[Hg] 128 mm[Hg] M EDENT ([facility]) [place] body weight 135 [lb_av] 135 [lb_av] MEDEN T ([facility]) Oxygen saturation in Arterial blood by Pulse oximetry 95 % 95 % [facility] ([facility]) Diastolic blood pressure 80 mm[Hg] 80 mm[Hg] [facility] ([facility]) Body height 67 [in_i] 67 [in_i] [facility] ([facility]) 5'7" Body weight 216.00 [lb_av] 216.00 [lb_av] MEDEN T ([facility]) Body mass index (BMI) [Ratio] 33.8 kg/m2 33.8 k g/m2 [facility] ([facility]) Heart rate 75 /min 75 /min [facility] ([facility]) Respiratory rate 18 /min 18 /min [facility] Body temperature 98.1 [degF] 98.1 [degF] [facility] Systolic blood pressure 120 mm[Hg] 120 mm[Hg] M EDENT ([facility]) Body mass index (BMI) [Ratio] 33.6 kg/m2 33.6 k g/m2 [facility] ([facility]) Heart rate 83 /min 83 /min [facility] ([facility]) Respiratory rate 16 /min 16 /min [facility] Body temperature 97.9 [degF] 97.9 [degF] [facility] ([facility]) Oxygen saturation in Arterial blood by Pulse oximetry 100 % 100 % [facility] [place] body weight 135 [lb_av] 135 [lb_av] MEDEN T ([facility]) Diastolic blood pressure 78 mm[Hg] 78 mm[Hg] [facility] ([facility]) Body height 67 [in_i] 67 [in_i] [facility] ([facility]) 5'7" Body weight 214.50 [lb_av] 214.50 [lb_av] MEDEN T ([facility]) Patient Treatment Plan of Care Planned Activity Planned Date Details Description Data Source (s) irbesartan 150 MG Oral Tablet 10/20/2020 12:00:00 AM [facility] gabapentin 300 MG Oral Capsule 01/01/2020 12:00:00 AM [facility] Acetaminophen 325 MG / Oxycodone Hydrochloride 5 MG Or al Tablet 06/10/2015 12:00:00 AM [facility] valsartan 80 MG Oral Tablet [facility] valsartan 160 MG Oral Tablet [facility] docosahexaenoic acid 120 MG / Eicosapentaenoic Acid 180 MG Oral Cap stefanie [facility] Esomeprazole 20 MG Delayed Release Oral Capsule [facility]
[2021-01-11] MEDS ORDERED: propofoL 500 MG/50 ML VIAL As Ordered ONE (10:34)
[2021-01-11] MEDS ORDERED: LIDOCAINE 2% 100MG/5ML SDV (FOR ANES.) As Ordered ONE (10:34)
--- NOTE | 2021-01-11 10:36 | ROOR ---
Patient Name: Debbie Orellana Procedure Date: 01/11/2021 10:14 AM Date of : 1950 Age: 70 Room: [facility] Gender: Female Note Status: Finalized Procedure: Total Colonoscopy to Cecum Indications: High risk colon cancer surveillance: Personal history of colonic polyps, Last colonoscopy: 2015 Providers: Norman Armendariz MD Referring MD: Shante BURROWS DO Requesting Provider: Medicines: Monitored Anesthesia Care Complications: No immediate complications. Procedure: Pre-Anesthesia Assessment: - The heart rate, respiratory rate, oxygen saturations, blood pressure, adequacy of pulmonary ventilation, and response to care were monitored throughout the procedure. The Colonoscope was introduced through the anus and advanced to the cecum, identified by appendiceal orifice and ileocecal valve. The colonoscopy was performed without difficulty. The patient tolerated the procedure well. The quality of the bowel preparation was excellent. Findings: The perianal and digital rectal examinations were normal. Non-bleeding internal hemorrhoids were found during retroflexion. The hemorrhoids were small and Grade I (internal hemorrhoids that do not prolapse). Multiple small and large-mouthed diverticula were found in the recto-sigmoid colon, sigmoid colon and descending colon. The exam was otherwise without abnormality on direct and retroflexion views. The terminal ileum appeared normal. Impression: - Non-bleeding internal hemorrhoids. - Diverticulosis in the recto-sigmoid colon, in the sigmoid colon and in the descending colon. - The examination was otherwise normal on direct and retroflexion views. - The examined portion of the ileum was normal. - No specimens collected. - The exam was otherwise normal to the cecum. Recommendation: - Patient has a contact number available for emergencies. The signs and symptoms of potential delayed complications were discussed with the patient. Return to normal activities tomorrow. Written discharge instructions were provided to the patient. - High fiber diet. - Discharge patient to home. - Continue present medications. - Repeat colonoscopy in 5 years for surveillance. - Return to referring physician. - The findings and recommendations were discussed with the patient. Procedure Code(s): --- Professional --- G0105, Colorectal cancer screening; colonoscopy on individual at high risk Diagnosis Code(s): --- Professional --- Z86.010, Personal history of colonic polyps K64.0, First degree hemorrhoids K57.30, Diverticulosis of large intestine without perforation or abscess without bleeding CPT copyright 2019 [employer]. All rights reserved. The codes documented in this report are preliminary and upon engraver signature review may be revised to meet current compliance requirements. Norman Armendariz MD Norman Armendariz MD 01/11/2021 10:35:50 AM Electronically signed by Norman Armendariz MD Number of Addenda: 0 Note Initiated On: 01/11/2021 10:14 AM Estimated Blood Loss: Estimated blood loss: none.
[2021-01-11 10:54] VITALS: BP 169/84
== END 2021-01-11 10:55 | disposition home or self-care (01) ==
LOC: M OPP 08:44
PROVIDERS: ATTEND Internal Medicine Gastroenterology
DX: Z12.11 Encounter for screening for malignant neoplasm of colon (principal); Z86.010 Personal history of colon polyps; K57.30 Diverticulosis of large intestine without perforation or abscess without bleeding; K64.0 First degree hemorrhoids; Z79.899 Other long term (current) drug therapy; Z85.41 Personal history of malignant neoplasm of cervix uteri; Z85.43 Personal history of malignant neoplasm of ovary; Z87.891 Personal history of nicotine dependence

== ENCOUNTER → 2021-02-02 | Outpatient (REF) | payer MEDICARE ==
[~2021-02-02] MED LIST changes: -NS 1,000 ML IV ONE
== END ==
LOC: M SFHCWAGY 13:33
PROVIDERS: ATTEND Nurse Practitioner Women's Health
DX: Z12.4 Encounter for screening for malignant neoplasm of cervix (principal); Z85.41 Personal history of malignant neoplasm of cervix uteri
CPT/HCPCS: G0101; G0123

== ENCOUNTER → 2021-02-08 | Outpatient (CLI) | payer MEDICARE ==
[2021-02-08 11:18] LABS: CALCIUM LEVEL 9.4 MG/DL (8.8-10.2); CREATININE FOR GFR 1.03 MG/DL (0.55-1.30); GLOMERULAR FILTRATION RATE 56.6 (>45); POTASSIUM SERUM 4.7 MEQ/L (3.5-5.1)
== END ==
LOC: M PLALAB 07:24
PROVIDERS: ATTEND Family Medicine
DX: I10 Essential (primary) hypertension (principal)

== ENCOUNTER → 2021-06-13 | Outpatient (CLI) | payer MEDICARE ==
[2021-06-13 10:47] LABS: BASO % 0.6 % (0.0-1.0); EOS # 0.1 10^3/uL (0.0-0.5); EOS % 0.9 % (0.0-3.0); HEMATOCRIT 41.6 % (36.0-47.0); LYMPH # 1.7 10^3/uL (1.5-5.0); LYMPH % 24.1 % (24.0-44.0); MEAN CORPUSCULAR HGB CONC 33.7 g/dl (32.0-36.5); MEAN CORPUSCULAR VOLUME 92.2 fl (80.0-96.0); MONO # 0.5 10^3/uL (0.0-0.8); NEUTROPHILS # 4.6 10^3/uL (1.5-8.5); NEUTROPHILS % 67.1 % (36.0-66.0); PLATELET COUNT, AUTOMATED 274 10^3/uL (150-450); RED BLOOD COUNT 4.51 10^6/uL (4.00-5.40); WHITE BLOOD COUNT 6.9 10^3/uL (4.0-10.0)
[2021-06-13 11:31] LABS: ALT/SGPT 30 U/L (12-78); BILIRUBIN,TOTAL 1.1 MG/DL (0.2-1.0); BLOOD UREA NITROGEN 20 MG/DL (7-18); CALCIUM LEVEL 9.7 MG/DL (8.8-10.2); CARBON DIOXIDE LEVEL 28 MEQ/L (21-32); CHLORIDE LEVEL 108 MEQ/L (98-107); CHOLESTEROL LEVEL 301 MG/DL (<200); CHOLESTEROL RISK RATIO 4.013 (<5); CREATININE FOR GFR 1.18 MG/DL (0.55-1.30); FREE T4 1.13 NG/DL (0.76-1.46); GLOMERULAR FILTRATION RATE 48.3 (>45); GLUCOSE, FASTING 107 MG/DL (70-100); HDL CHOLESTEROL 75 MG/DL (>40); LDL CHOLESTEROL 205 MG/DL (<100); NON-HDL-C 226 MG/DL; POTASSIUM SERUM 4.4 MEQ/L (3.5-5.1); SODIUM LEVEL 140 MEQ/L (136-145); TOTAL PROTEIN 6.6 GM/DL (6.4-8.2); TRIGLYCERIDES LEVEL 107 MG/DL (<150)
== END ==
LOC: M LAB 10:08
PROVIDERS: ATTEND Family Medicine
DX: I10 Essential (primary) hypertension (principal)

== ENCOUNTER → 2021-06-19 | Outpatient (CLI) | payer MEDICARE | LOC: M CARPUL 13:42 | PROVIDERS: ATTEND Family Medicine | DX: R05.2 Subacute cough (principal) ==

== ENCOUNTER → 2021-06-28 | Outpatient (CLI) | payer MEDICARE ==
[~2021-06-28] MED LIST changes: +METHACHOLINE KIT (J7674) INH ONE
== END ==
LOC: M CARPUL 10:30
PROVIDERS: ATTEND Family Medicine
DX: R05.9 Cough, unspecified (principal)
CPT/HCPCS: 94070; 95070; J7674

== ENCOUNTER → 2021-08-03 | Outpatient (CLI) | payer MEDICARE ==
[~2021-08-03] MED LIST changes: -METHACHOLINE KIT (J7674) INH ONE
[2021-08-03 11:26] LABS: CREATININE FOR GFR 1.11 MG/DL (0.55-1.30); FREE T4 1.14 NG/DL (0.76-1.46); GLOMERULAR FILTRATION RATE 51.9 (>45); POTASSIUM SERUM 4.4 MEQ/L (3.5-5.1); THYROID STIMULATING HORMONE 2.23 uIU/ML (0.358-3.740)
== END ==
LOC: M LAB 10:13
PROVIDERS: ATTEND Family Medicine
DX: E03.9 Hypothyroidism, unspecified (principal)

== ENCOUNTER → 2021-09-07 | Outpatient (CLI) | payer MEDICARE ==
[2021-09-07 09:22] LABS: CALCIUM LEVEL 9.5 MG/DL (8.8-10.2); CREATININE FOR GFR 1.1 MG/DL (0.55-1.30); GLOMERULAR FILTRATION RATE 52.4 (>45); POTASSIUM SERUM 4.5 MEQ/L (3.5-5.1)
== END ==
LOC: M LAB 08:11
PROVIDERS: ATTEND Family Medicine
DX: I12.9 Hypertensive chronic kidney disease with stage 1 through stage 4 chronic kidney disease, or unspecified chronic kidney disease (principal); N18.4 Chronic kidney disease, stage 4 (severe)

== ENCOUNTER → 2021-09-13 | Outpatient (CLI) | payer MEDICARE | LOC: M WHC 09:43 | PROVIDERS: ATTEND Nurse Practitioner Adult Health | DX: Z12.31 Encounter for screening mammogram for malignant neoplasm of breast (principal) ==

== ENCOUNTER → 2022-01-25 | Outpatient (CLI) | payer MEDICARE ==
[2022-01-25 09:11] LABS: BASO % 0.6 % (0.0-1.0); EOS # 0.1 10^3/uL (0.0-0.5); EOS % 1.4 % (0.0-3.0); HEMATOCRIT 42.3 % (36.0-47.0); HEMOGLOBIN 13.9 g/dl (12.0-15.5); LYMPH # 1.5 10^3/uL (1.5-5.0); LYMPH % 23.3 % (24.0-44.0); MEAN CORPUSCULAR HEMOGLOBIN 31.5 pg (27.0-33.0); MEAN CORPUSCULAR HGB CONC 32.9 g/dl (32.0-36.5); MEAN CORPUSCULAR VOLUME 95.9 fl (80.0-96.0); MONO # 0.5 10^3/uL (0.0-0.8); MONO % 6.9 % (2.0-8.0); NEUTROPHILS # 4.4 10^3/uL (1.5-8.5); NEUTROPHILS % 67.5 % (36.0-66.0); PLATELET COUNT, AUTOMATED 285 10^3/uL (150-450); RED BLOOD COUNT 4.41 10^6/uL (4.00-5.40); WHITE BLOOD COUNT 6.5 10^3/uL (4.0-10.0)
[2022-01-25 09:51] LABS: BILIRUBIN,TOTAL 0.8 MG/DL (0.2-1.0); CALCIUM LEVEL 9.4 MG/DL (8.8-10.2); CREATININE FOR GFR 1.07 MG/DL (0.55-1.30); POTASSIUM SERUM 4.1 MEQ/L (3.5-5.1)
[2022-01-25 09:52] LABS: ALBUMIN 3.7 GM/DL (3.2-5.2); CHOLESTEROL RISK RATIO 3.594 (<5); FREE T4 0.98 NG/DL (0.76-1.46); THYROID STIMULATING HORMONE 2.1 uIU/ML (0.358-3.740); TOTAL PROTEIN 6.7 GM/DL (6.4-8.2)
== END ==
LOC: M LAB 08:26
PROVIDERS: ATTEND Family Medicine
DX: E03.9 Hypothyroidism, unspecified (principal)

== ENCOUNTER → 2022-03-28 | Outpatient (REF) | payer MEDICARE, OTHER | LOC: M PLALAB 12:11 | PROVIDERS: ATTEND Advanced Practice Midwife | DX: Z12.72 Encounter for screening for malignant neoplasm of vagina (principal); Z85.41 Personal history of malignant neoplasm of cervix uteri | CPT/HCPCS: 87624; G0123 ==

== ENCOUNTER → 2022-06-06 | Outpatient (CLI) | payer MEDICARE ==
[2022-06-06 09:08] LABS: BASO % 0.7 % (0.0-1.0); EOS # 0.1 10^3/uL (0.0-0.5); EOS % 1.7 % (0.0-3.0); HEMATOCRIT 41.7 % (36.0-47.0); HEMOGLOBIN 13.8 g/dl (12.0-15.5); LYMPH # 1.4 10^3/uL (1.5-5.0); MEAN CORPUSCULAR HEMOGLOBIN 31.2 pg (27.0-33.0); MEAN CORPUSCULAR HGB CONC 33.1 g/dl (32.0-36.5); MEAN CORPUSCULAR VOLUME 94.3 fl (80.0-96.0); MONO # 0.4 10^3/uL (0.0-0.8); MONO % 6.8 % (2.0-8.0); NEUTROPHILS # 3.9 10^3/uL (1.5-8.5); NEUTROPHILS % 66.5 % (36.0-66.0); PLATELET COUNT, AUTOMATED 266 10^3/uL (150-450); RED BLOOD COUNT 4.42 10^6/uL (4.00-5.40); WHITE BLOOD COUNT 5.9 10^3/uL (4.0-10.0)
[2022-06-06 09:34] LABS: FREE T4 1.19 NG/DL (0.89-1.76); THYROID STIMULATING HORMONE 3.353 uIU/ML (0.55-4.78)
[2022-06-06 09:35] LABS: ALBUMIN 3.8 G/DL (3.2-5.2); ALKALINE PHOSPHATASE 77 U/L (46-116); ALT/SGPT 16 U/L (7.0-40); AST/SGOT 18 U/L (<34); BLOOD UREA NITROGEN 20 MG/DL (9-23); CALCIUM LEVEL 9.4 MG/DL (8.3-10.6); CARBON DIOXIDE LEVEL 28 MMOL/L (20-31); CHLORIDE LEVEL 107 MMOL/L (98-107); CREATININE FOR GFR 0.88 MG/DL (0.55-1.30); GLOMERULAR FILTRATION RATE > 60.0 (>39); GLUCOSE, FASTING 98 MG/DL (74-106); POTASSIUM SERUM 4.8 MMOL/L (3.5-5.1); SODIUM LEVEL 140 MMOL/L (136-145); TOTAL PROTEIN 6.2 G/DL (5.7-8.2)
== END ==
LOC: M LAB 08:07
PROVIDERS: ATTEND Nurse Practitioner Adult Health
DX: I12.9 Hypertensive chronic kidney disease with stage 1 through stage 4 chronic kidney disease, or unspecified chronic kidney disease (principal)

== ENCOUNTER → 2022-09-14 | Outpatient (CLI) | payer MEDICARE | LOC: M WHC 09:02 | PROVIDERS: ATTEND Advanced Practice Midwife | DX: Z12.31 Encounter for screening mammogram for malignant neoplasm of breast (principal) ==

== ENCOUNTER → 2022-12-11 | Outpatient (CLI) | payer MEDICARE ==
[2022-12-11 12:22] LABS: BASO # 0.1 10^3/uL (0.0-0.2); BASO % 0.7 % (0.0-1.0); EOS # 0.1 10^3/uL (0.0-0.5); EOS % 1.5 % (0.0-3.0); HEMATOCRIT 40.8 % (36.0-47.0); HEMOGLOBIN 13.5 g/dl (12.0-15.5); LYMPH # 1.6 10^3/uL (1.5-5.0); LYMPH % 21.6 % (24.0-44.0); MEAN CORPUSCULAR HEMOGLOBIN 31.1 pg (27.0-33.0); MEAN CORPUSCULAR HGB CONC 33.1 g/dl (32.0-36.5); MONO # 0.5 10^3/uL (0.0-0.8); MONO % 6.8 % (2.0-8.0); NEUTROPHILS # 5.2 10^3/uL (1.5-8.5); NEUTROPHILS % 69.1 % (36.0-66.0); PLATELET COUNT, AUTOMATED 289 10^3/uL (150-450); RED BLOOD COUNT 4.34 10^6/uL (4.00-5.40); WHITE BLOOD COUNT 7.5 10^3/uL (4.0-10.0)
[2022-12-11 12:23] LABS: ALBUMIN 3.7 G/DL (3.2-5.2); BILIRUBIN,TOTAL 1.5 MG/DL (0.3-1.2); CALCIUM LEVEL 9.4 MG/DL (8.3-10.6); CHOLESTEROL RISK RATIO 3.53 (<5); CREATININE FOR GFR 0.99 MG/DL (0.55-1.30); GLOMERULAR FILTRATION RATE 58.9 (>39); HDL CHOLESTEROL 75.9 MG/DL (>40); LDL CHOLESTEROL 169.1 MG/DL (<100); NON-HDL-C 192.1 MG/DL; POTASSIUM SERUM 4.1 MMOL/L (3.5-5.1); TOTAL PROTEIN 6.6 G/DL (5.7-8.2)
[2022-12-11 12:24] LABS: FREE T4 1.28 NG/DL (0.89-1.76); THYROID STIMULATING HORMONE 1.939 uIU/ML (0.55-4.78)
== END ==
LOC: M WUC 09:12
PROVIDERS: ATTEND Family Medicine
DX: E78.00 Pure hypercholesterolemia, unspecified (principal); E55.9 Vitamin D deficiency, unspecified; I12.9 Hypertensive chronic kidney disease with stage 1 through stage 4 chronic kidney disease, or unspecified chronic kidney disease; E03.9 Hypothyroidism, unspecified

== ENCOUNTER → 2023-01-08 | Outpatient (CLI) | payer MEDICARE | LOC: M RAD 16:25 | PROVIDERS: ATTEND Nurse Practitioner Adult Health | DX: H53.131 Sudden visual loss, right eye (principal); G43.909 Migraine, unspecified, not intractable, without status migrainosus ==

== ENCOUNTER → 2023-04-18 | Outpatient (CLI) | payer MEDICARE ==
[~2023-04-18] MED LIST changes: +IRBE150T27 PO; -IRBE150T7 PO
== END ==
LOC: M WUC 13:14
PROVIDERS: ATTEND Family Medicine
DX: R05.2 Subacute cough (principal)

== ENCOUNTER → 2023-06-12 | Outpatient (REF) | payer MEDICARE ==
[2023-06-12 12:10] LABS: BASO # 0.1 10^3/uL (0.0-0.2); BASO % 0.7 % (0.0-1.0); EOS # 0.1 10^3/uL (0.0-0.5); EOS % 0.9 % (0.0-3.0); HEMATOCRIT 42.3 % (36.0-47.0); HEMOGLOBIN 14.1 g/dl (12.0-15.5); LYMPH # 1.5 10^3/uL (1.5-5.0); LYMPH % 19.9 % (24.0-44.0); MEAN CORPUSCULAR HEMOGLOBIN 31.4 pg (27.0-33.0); MEAN CORPUSCULAR HGB CONC 33.3 g/dl (32.0-36.5); MEAN CORPUSCULAR VOLUME 94.2 fl (80.0-96.0); MONO # 0.5 10^3/uL (0.0-0.8); MONO % 6.2 % (2.0-8.0); NEUTROPHILS # 5.4 10^3/uL (1.5-8.5); PLATELET COUNT, AUTOMATED 296 10^3/uL (150-450); RED BLOOD COUNT 4.49 10^6/uL (4.00-5.40); WHITE BLOOD COUNT 7.4 10^3/uL (4.0-10.0)
[2023-06-12 12:43] LABS: FREE T4 1.36 NG/DL (0.89-1.76); THYROID STIMULATING HORMONE 2.377 uIU/ML (0.55-4.78)
[2023-06-12 12:50] LABS: ALBUMIN 3.9 G/DL (3.2-5.2); BILIRUBIN,TOTAL 1.1 MG/DL (0.3-1.2); CALCIUM LEVEL 9.5 MG/DL (8.3-10.6); CHOLESTEROL RISK RATIO 4.2 (<5); CREATININE FOR GFR 1.15 MG/DL (0.55-1.30); GLOMERULAR FILTRATION RATE 49.5 (>39); HDL CHOLESTEROL 49.9 MG/DL (>40); LDL CHOLESTEROL 141.1 MG/DL (<100); NON-HDL-C 160.1 MG/DL; POTASSIUM SERUM 3.9 MMOL/L (3.5-5.1); TOTAL PROTEIN 6.3 G/DL (5.7-8.2)
== END ==
LOC: M LABWUC 11:22
PROVIDERS: ATTEND Nurse Practitioner Adult Health
DX: E03.9 Hypothyroidism, unspecified (principal); I12.9 Hypertensive chronic kidney disease with stage 1 through stage 4 chronic kidney disease, or unspecified chronic kidney disease; E78.00 Pure hypercholesterolemia, unspecified

== ENCOUNTER → 2023-08-22 | Outpatient (CLI) | payer MEDICARE | LOC: M RAD 08:37 | PROVIDERS: ATTEND Internal Medicine Nephrology | DX: N18.31 Chronic kidney disease, stage 3a (principal); I70.1 Atherosclerosis of renal artery ==

== ENCOUNTER → 2023-10-09 | Outpatient (CLI) | payer MEDICARE | LOC: M WHC 10:21 | PROVIDERS: ATTEND Advanced Practice Midwife | DX: Z12.31 Encounter for screening mammogram for malignant neoplasm of breast (principal); R92.323 Mammographic fibroglandular density, bilateral breasts ==

== ENCOUNTER → 2023-12-11 | Outpatient (CLI) | payer MEDICARE ==
[2023-12-11 10:04] LABS: BASO # 0.1 10^3/uL (0.0-0.2); BASO % 0.7 % (0.0-1.0); EOS # 0.2 10^3/uL (0.0-0.5); EOS % 2.5 % (0.0-3.0); HEMOGLOBIN 14.2 g/dl (12.0-15.5); LYMPH % 29.5 % (24.0-44.0); MEAN CORPUSCULAR HEMOGLOBIN 32.4 pg (27.0-33.0); MEAN CORPUSCULAR HGB CONC 33.8 g/dl (32.0-36.5); MEAN CORPUSCULAR VOLUME 95.9 fl (80.0-96.0); MONO # 0.6 10^3/uL (0.0-0.8); NEUTROPHILS % 58.2 % (36.0-66.0); PLATELET COUNT, AUTOMATED 261 10^3/uL (150-450); RED BLOOD COUNT 4.38 10^6/uL (4.00-5.40); WHITE BLOOD COUNT 6.9 10^3/uL (4.0-10.0)
[2023-12-11 10:08] LABS: ALBUMIN 3.7 G/DL (3.2-5.2); BILIRUBIN,TOTAL 1.1 MG/DL (0.3-1.2); CALCIUM LEVEL 9.5 MG/DL (8.3-10.6); CHOLESTEROL RISK RATIO 4.05 (<5); CREATININE FOR GFR 1.02 MG/DL (0.55-1.30); GLOMERULAR FILTRATION RATE 56.7 (>39); HDL CHOLESTEROL 66.3 MG/DL (>40); LDL CHOLESTEROL 177.1 MG/DL (<100); NON-HDL-C 202.7 MG/DL; POTASSIUM SERUM 4.1 MMOL/L (3.5-5.1); TOTAL PROTEIN 6.5 G/DL (5.7-8.2)
[2023-12-11 10:10] LABS: FREE T4 1.49 NG/DL (0.89-1.76)
[2023-12-11 10:11] LABS: THYROID STIMULATING HORMONE 2.752 uIU/ML (0.55-4.78)
== END ==
LOC: M WUC 08:10
PROVIDERS: ATTEND Family Medicine
DX: N18.30 Chronic kidney disease, stage 3 unspecified (principal); E03.9 Hypothyroidism, unspecified

== ENCOUNTER → 2024-01-01 | Outpatient (CLI) | payer MEDICARE | LOC: M PLAIMG 08:30 | PROVIDERS: ATTEND Nurse Practitioner Adult Health | DX: M46.1 Sacroiliitis, not elsewhere classified (principal) ==

== ENCOUNTER → 2024-06-09 | Outpatient (CLI) | payer MEDICARE ==
[2024-06-09 13:54] LABS: BASO % 0.7 % (0.0-1.0); EOS # 0.1 10^3/uL (0.0-0.5); EOS % 1.5 % (0.0-3.0); HEMOGLOBIN 14.3 g/dl (12.0-15.5); LYMPH # 1.3 10^3/uL (1.5-5.0); LYMPH % 20.8 % (24.0-44.0); MEAN CORPUSCULAR HEMOGLOBIN 31.4 pg (27.0-33.0); MEAN CORPUSCULAR HGB CONC 33.3 g/dl (32.0-36.5); MEAN CORPUSCULAR VOLUME 94.5 fl (80.0-96.0); MONO # 0.5 10^3/uL (0.0-0.8); NEUTROPHILS # 4.2 10^3/uL (1.5-8.5); NEUTROPHILS % 68.7 % (36.0-66.0); PLATELET COUNT, AUTOMATED 264 10^3/uL (150-450); RED BLOOD COUNT 4.55 10^6/uL (4.00-5.40); WHITE BLOOD COUNT 6.1 10^3/uL (4.0-10.0)
[2024-06-09 14:37] LABS: ALBUMIN 3.7 G/DL (3.2-5.2); ALKALINE PHOSPHATASE 68 U/L (35-104); ALT/SGPT 18 U/L (7.0-40); AST/SGOT 20 U/L (<34); BILIRUBIN,TOTAL 1.3 MG/DL (0.3-1.2); BLOOD UREA NITROGEN 17 MG/DL (9-23); CALCIUM LEVEL 9.4 MG/DL (8.3-10.6); CARBON DIOXIDE LEVEL 27 MMOL/L (20-31); CHLORIDE LEVEL 106 MMOL/L (98-107); CHOLESTEROL LEVEL 240 MG/DL (<200); CHOLESTEROL RISK RATIO 4.14 (<5); CREATININE FOR GFR 0.97 MG/DL (0.55-1.30); FREE T4 1.45 NG/DL (0.89-1.76); GLOMERULAR FILTRATION RATE > 60.0 (>39); GLUCOSE, FASTING 104 MG/DL (74-106); HDL CHOLESTEROL 57.9 MG/DL (>40); LDL CHOLESTEROL 161.5 MG/DL (<100); NON-HDL-C 182.1 MG/DL; POTASSIUM SERUM 4.4 MMOL/L (3.5-5.1); SODIUM LEVEL 142 MMOL/L (136-145); THYROID STIMULATING HORMONE 2.521 uIU/ML (0.55-4.78); TOTAL PROTEIN 6.5 G/DL (5.7-8.2); TRIGLYCERIDES LEVEL 103 MG/DL (<150)
== END ==
LOC: M WUC 08:08
PROVIDERS: ATTEND Nurse Practitioner Adult Health
DX: E78.00 Pure hypercholesterolemia, unspecified (principal); E03.9 Hypothyroidism, unspecified; J45.40 Moderate persistent asthma, uncomplicated

== ENCOUNTER → 2024-10-09 | Outpatient (CLI) | payer MEDICARE | LOC: M WHC 08:57 | PROVIDERS: ATTEND Advanced Practice Midwife | DX: Z12.31 Encounter for screening mammogram for malignant neoplasm of breast (principal); R92.313 Mammographic fatty tissue density, bilateral breasts ==

== ENCOUNTER → 2024-11-17 | Outpatient (CLI) | payer MEDICARE ==
[~2024-11-17] MED LIST changes: +ACYC200C10 PO; -ACYC200C8 PO
== END ==
LOC: M RAD 15:25
PROVIDERS: ATTEND Internal Medicine Nephrology
DX: N18.31 Chronic kidney disease, stage 3a (principal)

== ENCOUNTER → 2024-12-22 | Outpatient (CLI) | payer MEDICARE ==
[2024-12-22 15:54] LABS: MAGNESIUM LEVEL 2.0 MG/DL (1.8-2.4)
[2024-12-22 15:56] LABS: IRON (FE) 136.0 UG/DL (50-170); PERCENT SATURATION 52.7 % (13.2-45.0)
[2024-12-22 15:59] LABS: VITAMIN B12 LEVEL 451.0 PG/ML (211-911)
[2024-12-24 00:53] LABS: UNITSIGA FOR GLIADIN IGA < 1.0 U/mL (<15.0); UNITSIGG FOR GLIADIN IGG < 1.0 U/mL (<15.0)
[2024-12-25 19:48] LABS: LYME TOTAL ANTIBODY CIA <= 0.90 Index (<=0.90)
== END ==
LOC: M WUC 11:05
PROVIDERS: ATTEND Family Medicine
DX: R53.83 Other fatigue (principal)

== ENCOUNTER → 2025-03-04 | Outpatient (CLI) | payer MEDICARE ==
[2025-03-04 12:02] LABS: ALT/SGPT 17.0 U/L (7.0-40); AST/SGOT 22.0 U/L (<34); CALCIUM LEVEL 9.8 MG/DL (8.3-10.6); CARBON DIOXIDE LEVEL 28.0 MMOL/L (20-31); CHLORIDE LEVEL 99.0 MMOL/L (98-107); CREATININE FOR GFR 1.12 MG/DL (0.55-1.30); GLOMERULAR FILTRATION RATE 51.9 (>39); POTASSIUM SERUM 3.7 MMOL/L (3.5-5.1); SODIUM LEVEL 137.0 MMOL/L (136-145)
== END ==
LOC: M RAD 10:42
PROVIDERS: ATTEND Family Medicine
DX: R11.0 Nausea (principal); K59.00 Constipation, unspecified